=== PATIENT | male | born 1930 | race African-American/Black ===

== ENCOUNTER 2019-12-02 21:05 | Inpatient (IN) | payer MEDICARE, OTHER ==
[2019-12-02] MEDS ORDERED: Azithromycin 500 MG VIAL ONE (21:34)
[2019-12-02] MEDS ORDERED: Acetaminophen 325 MG TAB ONE ×2 (21:34→21:54)
--- NOTE | 2019-12-02 22:02 | RAD ---
Portable frontal chest radiograph: 12/02/2019 COMPARISON: 04/08/2014 HISTORY: Covid positive patient FINDINGS: Atherosclerotic calcification of the aortic arch noted. Increased linear interstitial densi ty in bilateral perihilar regions and medial lung bases. Mild hazy density in the mid right lung zone laterally. These opacities are new when compared to the prior exam. No lobar consolidation, pneu mothorax, or pleural fluid. IMPRESSION: Mild interstitial density in the perihilar regions and both lung bases consistent with th e provided history of Covid pneumonia.
[2019-12-02 22:07] LABS: #Lymphocytes 0.7 thou/uL (1.20-3.40); #Monocytes 0.3 thou/uL (0.11-0.59); #Neutrophils 5.1 thou/uL (1.40-6.50); %Basophils 0.6 % (0.0-1.0); %Eosinophils 0.1 % (0.0-10.0); %Lymphocytes 10.6 % (21.0-51.0); %Monocytes 5.5 % (0.0-10.0); %Neutrophils 83.3 % (42.0-75.0); Hemoglobin 13.3 g/dL (14.0-18.0); Mean Corpuscular HGB CONC 33.5 g/dL (32.0-36.0); Mean Corpuscular Hemoglobin 29.7 pg (27.0-31.0); Mean Corpuscular Volume 88.5 fL (78.0-98.0); Platelet Count 124 thou/uL (130-400); RBC Distribution Width 13.7 % (11.5-14.5); Red Blood Cell (RBC) Count 4.47 mill/uL (4.70-6.10); White Blood Cell (WBC) Count 6.1 thou/uL (4.8-10.8)
--- NOTE | 2019-12-02 22:17 | CT ---
Head CT without contrast 12/02/2019: COMPARISON: 05/08/2008 HISTORY: Lethargy TECHNIQUE: Axial CT imaging at 5 mm intervals from vertex through skull base without contrast FINDINGS: Imaged paranasal sinuses and mastoid air cells are well aerated. No displaced calvarial fra cture. Extensive periventricular, deep, and subcortical white matter hypodensity, evidence of small vessel disease. Diffuse cerebral volume loss with associated prominence of the CSF containing spaces. No intracranial hemorrhage, midline shift, or mass effect IMPRESSION: Chronic findings as above. No intracranial hemorrhage.
[2019-12-02 22:27] LABS: ALT (SGPT) 21 U/L (8-55); AST (SGOT) 85 U/L (5-34); Albumin 3.6 g/dL (3.4-4.8); Alkaline Phosphatase 74 U/L (40-110); Anion Gap 17 mmol/L (10-20); BUN (Urea Nitrogen) 13 mg/dL (8.4-25.7); Calc. Creatinine Clearance 0 mL/min (70-130); Calcium 9.2 mg/dL (7.8-10.44); Carbon Dioxide 24 mmol/L (23-31); Chloride 100 mmol/L (98-107); Estimated GFR-MDRD 68; Globulin 4.2 g/dL (2.4-3.5); Glucose 147 mg/dL (83-110); Lipase 28 U/L (8-78); Potassium 4.2 mmol/L (3.5-5.1); Protein, Total 7.8 g/dL (5.8-8.1); Sodium 137 mmol/L (136-145)
[2019-12-02 22:32] LABS: Acetaminophen Less than 6.0 mcg/mL (10.0-30.0); Alcohol Less than 10 mg/dL (Less than 10); Salicylate Less than 8.0 mg/dL (15.0-30.0)
[2019-12-02 22:49] LABS: CKMB 1.6 ng/mL (0-6.6)
[2019-12-02 23:11] LABS: Bacteria/HPF None Seen HPF (None Seen); Bilirubin Negative (Negative); Blood, Urine Negative (Negative); Clarity Clear (Clear); Glucose, Urine (Dipstick) Normal (Negative); Ketone, Urine Negative (Negative); Leukocyte Negative Leu/uL (Negative); Nitrite Negative (Negative); Protein, Urine (Dipstick) 50 mg/dL (Neg-Trace); RBC/HPF 0-3 HPF (0-3); Specific Gravity, Urine 1.022 (1.002-1.036); Squamous Epithelial None Seen HPF (0-3); WBC/HPF 0-3 HPF (0-3); pH, Urine 6.5 (5.0-9.0)
[2019-12-02] MEDS ORDERED: Vancomycin 1 GM/200 ML BAG ONE (23:17)
[2019-12-02] MEDS ORDERED: Cefepime 2 GM VIAL ONE (23:17)
[2019-12-02 23:21] LABS: Amphetamine Not Detected (NotDetected); Barbiturates Screen Not Detected (NotDetected); Benzodiazepine Screen Not Detected (NotDetected); Cocaine Metabolite Screen Not Detected (NotDetected); Medtox Control Line Valid? VALID (VALID); Medtox Reader # READER 1; Methadone Not Detected (NotDetected); Methamphetamine Not Detected (NotDetected); Opiate Screen Not Detected (NotDetected); Oxycodone Screen Not Detected (NotDetected); Phencyclidine (PCP) Not Detected (NotDetected); THC/Cannabinoid Screen Not Detected (NotDetected); Tricyclic Screen Not Detected (NotDetected)
[2019-12-03 00:24] LABS: Lactic Acid 2.8 mmol/L (0.5-2.2)
[2019-12-03] MEDS ORDERED: Ondansetron PF 4 MG/2 ML Vial IVP PRN (01:02)
[2019-12-03] MEDS ORDERED: Ondansetron ODT 4 MG TAB SL PRN (01:02)
[2019-12-03] MEDS ORDERED: Acetaminophen 325 MG TAB PO PRN (01:02)
[2019-12-03] MEDS ORDERED: Guaifenesin DM 100-10/5 ML UDCUP PO PRN (02:04)
[2019-12-03] MEDS ORDERED: Calcium Carbonate 500 MG ChewTAB PO PRN (02:04)
--- NOTE | 2019-12-03 02:15 | PDOC.HHP ---
Hospitalist HPI - History of Present Illness altered mental state, fever History of Present Illness: Case of an 89y/o male with pmhx of hypothyroidism, chron's disease and HLD who comes to hospital due to fever and altered mental state. apparently patient was recently dc from [place] [facility] after been hospitalize for COVID 19, was sent home on 13AUG, after 2 days of hospitalization. Today family members called EMS due to patient "being more weak and less active" than usual with associated fever 101 at home, for which they wanted medical evaluation. during my evaluation patient was lethargic, oriented only to person able to follow commands Hospitalist ROS - Review of Systems All other systems reviewed; all pertinent +/- noted in HPI/Subj Hospitalist History - Past Surgical History Other Surgical History: unable to asses due to mental status - Family History Other Family History: unable to asses due to mental status - Exam General Appearance: NAD, awake alert Eye: PERRL, anicteric sclera ENT: normocephalic atraumatic, no oropharyngeal lesions Neck: supple, symmetric, no JVD Heart: RRR, no murmur, no gallops Respiratory: CTAB, no wheezes, no rales Gastrointestinal: soft, non-tender, non-distended Extremities: no cyanosis, no clubbing, no edema Skin: normal turgor, no lesions, no rashes Neurological: cranial nerve grossly intact, normal sensation to touch Musculoskeletal: normal tone Psychiatric: normal affect, normal behavior, oriented to person Hospitalist Results - Labs Result Diagrams: 12/02/19 21:52 12/02/19 21:52 Lab results: WBC 6.1 thou/uL (4.8-10.8) 12/02/19 21:52 Hgb 13.3 g/dL (14.0-18.0) L 12/02/19 21:52 Hct 39.6 % (42.0-52.0) L 12/02/19 21:52 MCV 88.5 fL (78.0-98.0) 12/02/19 21:52 Plt Count 124 thou/uL (130-400) L 12/02/19 21:52 Neutrophils % 83.3 % (42.0-75.0) H 12/02/19 21:52 Sodium 137 mmol/L (136-145) 12/02/19 21:52 Potassium 4.2 mmol/L (3.5-5.1) 12/02/19 21:52 Chloride 100 mmol/L (98-107) 12/02/19 21:52 Carbon Dioxide 24 mmol/L (23-31) 12/02/19 21:52 BUN 13 mg/dL (8.4-25.7) 12/02/19 21:52 Creatinine 1.22 mg/dL (0.7-1.3) 12/02/19 21:52 Glucose 147 mg/dL (83-110) H 12/02/19 21:52 Lactic Acid 2.8 mmol/L (0.5-2.2) H 12/02/19 23:59 Calcium 9.2 mg/dL (7.8-10.44) 12/02/19 21:52 Total Bilirubin 1.0 mg/dL (0.2-1.2) 12/02/19 21:52 AST 85 U/L (5-34) H 12/02/19 21:52 ALT 21 U/L (8-55) 12/02/19 21:52 Alkaline Phosphatase 74 U/L (40-110) 12/02/19 21:52 CK-MB (CK-2) 1.6 ng/mL (0-6.6) 12/02/19 21:52 Troponin I 0.065 ng/mL (< 0.028) H 12/02/19 21:52 Serum Total Protein 7.8 g/dL (5.8-8.1) 12/02/19 21:52 Albumin 3.6 g/dL (3.4-4.8) 12/02/19 21:52 Lipase 28 U/L (8-78) 12/02/19 21:52 Urine Ketones Negative mg/dL (Negative) 12/02/19 22:45 Urine Blood Negative (Negative) 12/02/19 22:45 Urine Nitrite Negative (Negative) 12/02/19 22:45 Ur Leukocyte Esterase Negative Yoshi/uL (Negative) 12/02/19 22:45 Urine RBC 0-3 HPF (0-3) 12/02/19 22:45 Urine WBC 0-3 HPF (0-3) 12/02/19 22:45 Ur Squamous Epith Cells None Seen HPF (0-3) 12/02/19 22:45 Urine Bacteria None Seen HPF (None Seen) 12/02/19 22:45 - Radiology Interpretation CT scan - head Additional Comment: no acute pathology Hospitalist H&P A/P - Problem (1) Sepsis Code(s): A41.9 - SEPSIS, UNSPECIFIED ORGANISM Status: Acute (2) Pneumonia due to COVID-19 virus Code(s): U07.1 - COVID-19; J12.89 - OTHER VIRAL PNEUMONIA Status: Acute (3) Hypothyroidism Code(s): E03.9 - HYPOTHYROIDISM, UNSPECIFIED Status: Acute (4) HTN (hypertension) Code(s): I10 - ESSENTIAL (PRIMARY) HYPERTENSION Status: Acute (5) Hx of Crohn's disease Code(s): Z87.19 - PERSONAL HISTORY OF OTHER DISEASES OF THE DIGESTIVE SYSTEM Status: Acute - Plan Plan: 89y/o male with the stated pmhx who present with sepsis secondary to covid 19 sepsis / covid 19 - fever with altered mental status and cxr consistent with covid 19 - sepsis bundles started, blood cultures taken, ivfs and broad spectrum abx given - f/u LA - 02 supplementation - dvt prophylaxis - decadron 6mg ivd - cxr consistent covid 19 - f/u inflammation markers - recent hospitalization for covid 19 htn - holding htn due to sepsis - restart when more stable hypothyroidism / hld / chrons - continue home meds when able
[2019-12-03] MEDS: cefTRIAXone\\ROCEPHIN 1 GM in Sodium Chloride 0.9% 100 ML IVPB SCH (03:09)
[2019-12-03] MEDS: Sodium Chloride 0.9% 1,000 ML IV SCH ×2 (03:09→18:25)
[2019-12-03 04:58] LABS: ALT (SGPT) 21 U/L (8-55); AST (SGOT) 77 U/L (5-34); Alkaline Phosphatase 59 U/L (40-110); Anion Gap 13 mmol/L (10-20); BUN (Urea Nitrogen) 12 mg/dL (8.4-25.7); Bilirubin, Total 0.9 mg/dL (0.2-1.2); Calc. Creatinine Clearance 67 mL/min (70-130); Calcium 8.1 mg/dL (7.8-10.44); Carbon Dioxide 21 mmol/L (23-31); Chloride 101 mmol/L (98-107); Estimated GFR-MDRD 90; Globulin 3.4 g/dL (2.4-3.5); Glucose 119 mg/dL (83-110); Potassium 3.7 mmol/L (3.5-5.1); Protein, Total 6.4 g/dL (5.8-8.1); Sodium 131 mmol/L (136-145)
[2019-12-03 05:02] LABS: Troponin I 0.056 ng/mL (< 0.028)
[2019-12-03 06:34] LABS: Hemoglobin 11.5 g/dL (14.0-18.0); Mean Corpuscular Hemoglobin 28.4 pg (27.0-31.0); Mean Corpuscular Volume 88.8 fL (78.0-98.0); Platelet Count 116 thou/uL (130-400); RBC Distribution Width 13.6 % (11.5-14.5); Red Blood Cell (RBC) Count 4.06 mill/uL (4.70-6.10); White Blood Cell (WBC) Count 6.4 thou/uL (4.8-10.8)
[2019-12-03 06:45] LABS: Troponin I 0.075 ng/mL (< 0.028)
[2019-12-03 07:35] LABS: Band 11 % (5-11); Lymphocytes 23 % (21-51); MDiff Complete? YES; Monocytes 7 % (0-10); Neutrophil 59 % (42-75); Platelet Morphology Comment Appears Decreased; Polychromasia SLIGHT = 2-3 cells (100X) (0-2/hpf)
[2019-12-03] MEDS: Dexamethasone 4 mg/ml Vial SLOW IVP SCH (07:35)
[2019-12-03] MEDS: Enoxaparin Sodium 40 MG/0.4 ML SYRINGE SC SCH (07:36)
--- NOTE | 2019-12-03 17:20 | PDOC.HOSPP ---
- Subjective Subjective: Patient was seen examined at bedside. He still lethargic, arousable. His vital signs stable. He remains afebrile, he is satting at 98% on room air. No other acute events overnight. I have called and update his family, his Mr. Kianna Knight. - Objective Vital Signs & Weight: Vital Signs (12 hours) Temp Pulse Resp BP Pulse Ox 12/03/19 16:00 97.5 F L 75 18 154/67 H 98 12/03/19 11:15 98.6 F 79 20 142/69 H 100 12/03/19 07:57 100 F H 78 20 144/67 H 100 Weight Admit Weight 199 lb 3.2 oz Weight 199 lb 3.2 oz I&O: 12/02/19 12/03/19 12/04/19 06:59 06:59 06:59 Intake Total 275 Output Total 250 Balance 275 -250 Result Diagrams: 12/03/19 06:20 12/03/19 04:01 Hospitalist ROS - Medication Medications: Active Medications Generic Name Dose Route Start Last Admin Trade Name Roc PRN Reason Stop Dose Admin Dexamethasone 6 mg 12/03/19 09:00 12/03/19 07:35 Decadron SLOW IVP 6 mg DAILY DOMINGUEZ Administration Enoxaparin Sodium 40 mg 12/03/19 09:00 12/03/19 07:36 Lovenox SC 40 mg 0900 DOMINGUEZ Administration Ceftriaxone Sodium 1 gm/ 100 mls @ 200 mls/hr 12/03/19 03:00 12/03/19 03:09 Sodium Chloride IVPB 100 mls 0300 DOMINGUEZ Administration Sodium Chloride 1,000 mls @ 70 mls/hr 12/03/19 02:15 12/03/19 03:09 Normal Saline 0.9% IV 1,000 mls .[id number] DOMINGUEZ Administration Hosp A/P - Plan - Physical Exam General Appearance: NAD, awake alert Eye: PERRL, anicteric sclera ENT: normocephalic atraumatic, no oropharyngeal lesions Neck: supple, symmetric, no JVD Heart: RRR, no murmur, no gallops Respiratory: CTAB, no wheezes, no rales Gastrointestinal: soft, non-tender, non-distended Extremities: no cyanosis, no clubbing, no edema Skin: normal turgor, no lesions, no rashes Neurological: cranial nerve grossly intact, lethargic Musculoskeletal: normal tone Psychiatric: normal affect, normal behavior Assessment and plan: #Sepsis present on admission secondary to pneumonia #Pneumonia due to COVID-19 virus #Essential hypertension #History subacromial disease #Poor p.o. intake 12/03/2019 Patient still lethargic, with intermittent confusion. He remains afebrile since admission. Blood cultures are pending. Poor p.o. intake. We will continue with empiric IV antibiotics, Decadron, breathing treatment. We will add Potonix for GI prophylaxis as patient is on steroids. Continue Lovenox for DVT prophylaxis. Supportive care. I have updated his with regards to his status.
[2019-12-03] MEDS: Azithromycin 500 MG in Sodium Chloride 0.9% 250 ML 250 ML IVPB SCH (20:32)
[2019-12-04] MEDS: cefTRIAXone\\ROCEPHIN 1 GM in Sodium Chloride 0.9% 100 ML IVPB SCH (03:11)
[2019-12-04 05:22] LABS: #Monocytes 0.3 thou/uL (0.11-0.59); #Neutrophils 4.5 thou/uL (1.40-6.50); %Basophils 0.3 % (0.0-1.0); %Eosinophils 0.1 % (0.0-10.0); %Lymphocytes 17.3 % (21.0-51.0); %Monocytes 5.6 % (0.0-10.0); %Neutrophils 76.7 % (42.0-75.0); Hemoglobin 11.2 g/dL (14.0-18.0); Mean Corpuscular HGB CONC 32.2 g/dL (32.0-36.0); Mean Corpuscular Hemoglobin 28.8 pg (27.0-31.0); Mean Corpuscular Volume 89.3 fL (78.0-98.0); Mean Platelet Volume 9.2 fL (7.4-10.4); Platelet Count 126 thou/uL (130-400); RBC Distribution Width 13.7 % (11.5-14.5); White Blood Cell (WBC) Count 5.8 thou/uL (4.8-10.8)
[2019-12-04 06:08] LABS: ALT (SGPT) 17 U/L (8-55); AST (SGOT) 58 U/L (5-34); Albumin 2.7 g/dL (3.4-4.8); Alkaline Phosphatase 51 U/L (40-110); Anion Gap 10 mmol/L (10-20); BUN (Urea Nitrogen) 11 mg/dL (8.4-25.7); Bilirubin, Total 0.6 mg/dL (0.2-1.2); Calc. Creatinine Clearance 83 mL/min (70-130); Calcium 8.2 mg/dL (7.8-10.44); Carbon Dioxide 20 mmol/L (23-31); Chloride 110 mmol/L (98-107); Estimated GFR-MDRD Greater than 90; Globulin 3.3 g/dL (2.4-3.5); Glucose 110 mg/dL (83-110); Magnesium 1.9 mg/dL (1.6-2.6); Potassium 4.1 mmol/L (3.5-5.1); Sodium 136 mmol/L (136-145)
[2019-12-04] MEDS: Dexamethasone 4 mg/ml Vial SLOW IVP SCH (08:31)
[2019-12-04] MEDS: Sodium Chloride 0.9% 1,000 ML IV SCH ×2 (08:31→20:28)
[2019-12-04] MEDS: Enoxaparin Sodium 40 MG/0.4 ML SYRINGE SC SCH (08:32)
[2019-12-04] MEDS: Sodium Chloride 0.9% (PF) 10 ML VIAL FS PRN (08:33)
[2019-12-04] MEDS: Pantoprazole 40 MG VIAL IVP SCH (08:34)
--- NOTE | 2019-12-04 15:40 | PDOC.HOSPP ---
- Subjective Subjective: Patient was seen examined at bedside. Patient is much improved today mentally. He had no fever, satting well on room air. His p.o. intake still. I have called and updated his on the phone. Discussed with nursing staff. - Objective Vital Signs & Weight: Vital Signs (12 hours) Temp Pulse Resp BP Pulse Ox 12/04/19 15:24 99 F 71 14 158/72 H 97 12/04/19 14:53 95 12/04/19 11:40 97.7 F 64 20 137/71 95 12/04/19 08:50 98.1 F 76 20 178/80 H 95 Weight Admit Weight 199 lb 3.2 oz Weight 199 lb 3.2 oz I&O: 12/03/19 12/04/19 12/05/19 06:59 06:59 06:59 Intake Total 275 1390 Output Total 550 Balance 275 840 Result Diagrams: 12/04/19 04:25 12/04/19 04:25 Hospitalist ROS - Medication Medications: Active Medications Generic Name Dose Route Start Last Admin Trade Name Freq PRN Reason Stop Dose Admin Dexamethasone 6 mg 12/03/19 09:00 12/04/19 08:31 Decadron SLOW IVP 6 mg DAILY DOMINGUEZ Administration Enoxaparin Sodium 40 mg 12/03/19 09:00 12/04/19 08:32 Lovenox SC 40 mg 0900 DOMINGUEZ Administration Azithromycin 500 mg/ Sodium 250 mls @ 250 mls/hr 12/03/19 21:00 12/03/19 20: 32 Chloride IVPB 250 mls 2100 DOMINGUEZ Administration Sodium Chloride 1,000 mls @ 70 mls/hr 12/03/19 02:15 12/04/19 08:31 Normal Saline 0.9% IV 1,000 mls .[id number] DOMINGUEZ Administration Pantoprazole Sodium 40 mg 12/04/19 09:00 12/04/19 08:34 Protonix IVP 40 mg DAILY DOMINGUEZ Administration Sodium Chloride 10 ml 12/03/19 17:47 12/04/19 08:33 Normal Saline Pf FS 10 ml PRN PRN Administration RECONSTITUTION Hosp A/P - Plan - Physical Exam General Appearance: NAD, awake alert Eye: PERRL, anicteric sclera ENT: normocephalic atraumatic, no oropharyngeal lesions Neck: supple, symmetric, no JVD Heart: RRR, no murmur, no gallops Respiratory: CTAB, no wheezes, no rales Gastrointestinal: soft, non-tender, non-distended Extremities: no cyanosis, no clubbing, no edema Skin: normal turgor, no lesions, no rashes Neurological: cranial nerve grossly intact, lethargic Musculoskeletal: normal tone Psychiatric: normal affect, normal behavior Assessment and plan: #Sepsis present on admission secondary to pneumonia #Pneumonia due to COVID-19 virus #Essential hypertension #History Crohn's disease #Poor p.o. intake 12/04/2019 No further fever. Patient responded well with current therapy. Mental status much We will continue with empiric antibiotic. Blood cultures so far no growth. He still have poor p.o. intake. I have encouraged him to increase his p.o. intake as well as supplemental diet. I have updated family member regard to patient's status. Hopefully will be able to get him home in a day or 2. 12/03/2019 Patient still lethargic, with intermittent confusion. He remains afebrile since admission. Blood cultures are pending. Poor p.o. intake. We will continue with empiric IV antibiotics, Decadron, breathing treatment. We will add Potonix for GI prophylaxis as patient is on steroids. Continue Lovenox for DVT prophylaxis. Supportive care. I have updated his with regards to his status.
[2019-12-04] MEDS: Azithromycin 500 MG in Sodium Chloride 0.9% 250 ML 250 ML IVPB SCH (20:27)
[2019-12-05] MEDS: hydrALAZINE 20 MG/ML VIAL SLOW IVP PRN ×2 (00:19→04:06)
[2019-12-05] MEDS: Sodium Chloride 0.9% 1,000 ML IV SCH ×2 (04:05→10:29)
[2019-12-05] MEDS: cefTRIAXone\\ROCEPHIN 1 GM in Sodium Chloride 0.9% 100 ML IVPB SCH (08:11)
[2019-12-05] MEDS: Enoxaparin Sodium 40 MG/0.4 ML SYRINGE SC SCH (08:11)
[2019-12-05] MEDS: Pantoprazole 40 MG VIAL IVP SCH (08:11)
[2019-12-05] MEDS: Dexamethasone 4 mg/ml Vial SLOW IVP SCH (08:13)
[2019-12-05] MEDS ORDERED: Amlodipine 10 MG TAB PO SCH (10:15)
--- NOTE | 2019-12-05 16:19 | PDOC.HOSPP ---
- Subjective Subjective: Pt was seen examined at bedside. No new complaint. slightly tachypnic but remains on RA. not eating much per nursing staff. no fever. cultures no growth. - Objective Vital Signs & Weight: Vital Signs (12 hours) Temp Pulse Resp BP BP BP Pulse Ox 12/05/19 16:00 98.2 F 87 32 H 12/05/19 14:01 145/70 H 152/76 H 12/05/19 10:50 98.8 F 91 32 H 133/67 95 12/05/19 10:29 100 12/05/19 08:00 99.7 F H 100 32 H 175/85 H 96 12/05/19 05:47 101 H 175/83 H Pulse Ox Pulse Ox 12/05/19 16:00 12/05/19 14:01 98 98 12/05/19 10:50 12/05/19 10:29 12/05/19 08:00 12/05/19 05:47 Weight Admit Weight 199 lb 3.2 oz Weight 199 lb 3.2 oz I&O: 12/04/19 12/05/19 12/06/19 06:59 06:59 06:59 Intake Total 1390 Output Total 550 175 Balance 840 -175 Result Diagrams: 12/04/19 04:25 12/04/19 04:25 Hospitalist ROS - Medication Medications: Active Medications Generic Name Dose Route Start Last Admin Trade Name Freq PRN Reason Stop Dose Admin Dexamethasone 6 mg 12/03/19 09:00 12/05/19 08:13 Decadron SLOW IVP 6 mg DAILY DOMINGUEZ Administration Enoxaparin Sodium 40 mg 12/03/19 09:00 12/05/19 08:11 Lovenox SC 40 mg 0900 DOMINGUEZ Administration Hydralazine HCl 10 mg 12/04/19 23:36 12/05/19 04:06 Apresoline SLOW IVP 10 mg Q4H PRN Administration SBP > 180 Azithromycin 500 mg/ Sodium 250 mls @ 250 mls/hr 12/03/19 21:00 12/04/19 20: 27 Chloride IVPB 250 mls 2100 DOMINGUEZ Administration Ceftriaxone Sodium 1 gm/ 100 mls @ 200 mls/hr 12/05/19 10:00 12/05/19 08:11 Sodium Chloride IVPB 100 mls 1000 DOMINGUEZ Administration Sodium Chloride 1,000 mls @ 50 mls/hr 12/05/19 10:07 12/05/19 10:29 Normal Saline 0.9% IV Not Given .Q20H DOMINGUEZ Pantoprazole Sodium 40 mg 12/04/19 09:00 12/05/19 08:11 Protonix IVP 40 mg DAILY DOMINGUEZ Administration Sodium Chloride 10 ml 12/03/19 17:47 12/04/19 08:33 Normal Saline Pf FS 10 ml PRN PRN Administration RECONSTITUTION Hosp A/P - Plan - Physical Exam General Appearance: NAD, awake alert Eye: PERRL, anicteric sclera ENT: normocephalic atraumatic, no oropharyngeal lesions Neck: supple, symmetric, no JVD Heart: RRR, no murmur, no gallops Respiratory: CTAB, no wheezes, no rales Gastrointestinal: soft, non-tender, non-distended Extremities: no cyanosis, no clubbing, no edema Skin: normal turgor, no lesions, no rashes Neurological: cranial nerve grossly intact, lethargic Musculoskeletal: normal tone Psychiatric: normal affect, normal behavior Assessment and plan: #Sepsis present on admission secondary to pneumonia #Pneumonia due to COVID-19 virus #Essential hypertension #History Crohn's disease #Poor p.o. intake 12/05/2019 Pt is clinically improved. still poor PO intake. will cont supportive cares. PT eval. Anticipate D/C home tomorrow if cont to improve. BCx so no growth. 12/04/2019 No further fever. Patient responded well with current therapy. Mental status much We will continue with empiric antibiotic. Blood cultures so far no growth. He still have poor p.o. intake. I have encouraged him to increase his p.o. intake as well as supplemental diet. I have updated family member regard to patient's status. Hopefully will be able to get him home in a day or 2. 12/03/2019 Patient still lethargic, with intermittent confusion. He remains afebrile since admission. Blood cultures are pending. Poor p.o. intake. We will continue with empiric IV antibiotics, Decadron, breathing treatment. We will add Potonix for GI prophylaxis as patient is on steroids. Continue Lovenox for DVT prophylaxis. Supportive care. I have updated his with regards to his status.
[2019-12-05] MEDS ORDERED: Simvastatin 40 MG TAB PO SCH (21:00)
[2019-12-05] MEDS: Atorvastatin Calcium 10 MG TAB PO SCH (21:23)
[2019-12-05] MEDS: Azithromycin 500 MG in Sodium Chloride 0.9% 250 ML 250 ML IVPB SCH (21:23)
[2019-12-06 05:36] LABS: Anion Gap 15 mmol/L (10-20); BUN (Urea Nitrogen) 15 mg/dL (8.4-25.7); CRP (Inflammatory) 8.99 mg/dL (= or < 0.5); Calc. Creatinine Clearance 81 mL/min (70-130); Calcium 8.5 mg/dL (7.8-10.44); Carbon Dioxide 17 mmol/L (23-31); Chloride 110 mmol/L (98-107); Estimated GFR-MDRD Greater than 90; Glucose 105 mg/dL (83-110); Potassium 3.9 mmol/L (3.5-5.1); Sodium 138 mmol/L (136-145)
[2019-12-06] MEDS: Sodium Chloride 0.9% 1,000 ML IV SCH (05:57)
[2019-12-06 06:06] LABS: Band 6 % (5-11); Hemoglobin 13.6 g/dL (14.0-18.0); Lymphocytes 13 % (21-51); MDiff Complete? YES; Mean Corpuscular Hemoglobin 28.3 pg (27.0-31.0); Mean Corpuscular Volume 88.4 fL (78.0-98.0); Mean Platelet Volume 8.8 fL (7.4-10.4); Monocytes 3 % (0-10); Myelocyte 3 % (0-0); Neutrophil 75 % (42-75); Platelet Count 177 thou/uL (130-400); RBC Distribution Width 13.8 % (11.5-14.5); White Blood Cell (WBC) Count 6.5 thou/uL (4.8-10.8)
[2019-12-06] MEDS: Enoxaparin Sodium 40 MG/0.4 ML SYRINGE SC SCH (07:56)
[2019-12-06] MEDS: Dexamethasone 4 mg/ml Vial SLOW IVP SCH (07:57)
[2019-12-06] MEDS: Furosemide 40 MG TAB PO SCH (07:57)
[2019-12-06] MEDS: Levothyroxine Sodium 50 MCG TAB PO SCH (07:57)
[2019-12-06] MEDS: Amlodipine 10 MG TAB PO SCH (07:58)
[2019-12-06] MEDS: Cholecalciferol 1,000 UNITS (25 MCG) TAB PO SCH (07:58)
[2019-12-06] MEDS: Potassium Chloride 10 MEQ TAB PO SCH (07:58)
[2019-12-06] MEDS: Pantoprazole 40 MG VIAL IVP SCH (08:00)
[2019-12-06] MEDS ORDERED: Non-Formulary Item 1 EACH (Cholecalciferol (Vitamin D3) [Vitamin D3] 2,000 UNIT) PO SCH (09:00)
[2019-12-06] MEDS ORDERED: Potassium Chloride 20 MEQ TAB PO SCH (09:00)
[2019-12-06] MEDS: cefTRIAXone\\ROCEPHIN 1 GM in Sodium Chloride 0.9% 100 ML IVPB SCH (10:24)
--- NOTE | 2019-12-06 17:13 | PDOC.HOSPP ---
- Subjective Subjective: Pt is still not eating much, lethargic. no appetite. No new event overnight. - Objective Vital Signs & Weight: Vital Signs (12 hours) Temp Pulse Resp BP Pulse Ox 12/06/19 12:00 98.5 F 87 22 H 164/91 H 96 12/06/19 09:13 184/85 H 12/06/19 07:10 98.2 F 98 24 H 210/96 H 94 L Weight Admit Weight 199 lb 3.2 oz Weight 199 lb 3.2 oz I&O: 12/05/19 12/06/19 12/07/19 06:59 06:59 06:59 Output Total 175 Balance -175 Result Diagrams: 12/06/19 04:36 12/06/19 04:36 Hospitalist ROS - Medication Medications: Active Medications Generic Name Dose Route Start Last Admin Trade Name Freq PRN Reason Stop Dose Admin Amlodipine Besylate 10 mg 12/06/19 09:00 12/06/19 07:58 Norvasc PO 10 mg DAILY DOMINGUEZ Administration Atorvastatin Calcium 10 mg 12/05/19 21:00 12/05/19 21:23 Lipitor PO 10 mg HS DOMINGUEZ Administration Cholecalciferol 2,000 units 12/06/19 09:00 12/06/19 07:58 Vitamin D3 PO 2,000 units DAILY DOMINGUEZ Administration Dexamethasone 6 mg 12/03/19 09:00 12/06/19 07:57 Decadron SLOW IVP 6 mg DAILY DOMINGUEZ Administration Enoxaparin Sodium 40 mg 12/03/19 09:00 12/06/19 07:56 Lovenox SC 40 mg 0900 DOMINGUEZ Administration Furosemide 40 mg 12/06/19 09:00 12/06/19 07:57 Lasix PO 40 mg DAILY DOMINGUEZ Administration Hydralazine HCl 10 mg 12/04/19 23:36 12/05/19 04:06 Apresoline SLOW IVP 10 mg Q4H PRN Administration SBP > 180 Azithromycin 500 mg/ Sodium 250 mls @ 250 mls/hr 12/03/19 21:00 12/05/19 21: 23 Chloride IVPB 250 mls 2100 DOMINGUEZ Administration Ceftriaxone Sodium 1 gm/ 100 mls @ 200 mls/hr 12/05/19 10:00 12/06/19 10:24 Sodium Chloride IVPB 100 mls 1000 DOMINGUEZ Administration Sodium Chloride 1,000 mls @ 50 mls/hr 12/05/19 10:07 12/06/19 05:57 Normal Saline 0.9% IV 1,000 mls .Q20H DOMINGUEZ Administration Levothyroxine Sodium 50 mcg 12/06/19 09:00 12/06/19 07:57 Synthroid PO 50 mcg DAILY DOMINGUEZ Administration Pantoprazole Sodium 40 mg 12/04/19 09:00 12/06/19 08:00 Protonix IVP 40 mg DAILY DOMINGUEZ Administration Potassium Chloride 10 meq 12/06/19 09:00 12/06/19 07:58 Klor-Con 10 PO 10 meq DAILY DOMINGUEZ Administration Sodium Chloride 10 ml 12/03/19 17:47 12/04/19 08:33 Normal Saline Pf FS 10 ml PRN PRN Administration RECONSTITUTION Hosp A/P - Plan - Physical Exam General Appearance: NAD, awake alert Eye: PERRL, anicteric sclera ENT: normocephalic atraumatic, no oropharyngeal lesions Neck: supple, symmetric, no JVD Heart: RRR, no murmur, no gallops Respiratory: CTAB, no wheezes, no rales Gastrointestinal: soft, non-tender, non-distended Extremities: no cyanosis, no clubbing, no edema Skin: normal turgor, no lesions, no rashes Neurological: cranial nerve grossly intact, lethargic Musculoskeletal: normal tone Psychiatric: normal affect, normal behavior Assessment and plan: #Sepsis present on admission secondary to pneumonia #Pneumonia due to COVID-19 virus #Essential hypertension #History Crohn's disease #Poor p.o. intake #Physical debility 12/06/2019 Pt is stable on room air, but quite debilitated. Will consult CM for inpt Rehab vs. SNF. cont supportive care, empiric abx, steroid. Supplemental diet 12/05/2019 Pt is clinically improved. still poor PO intake. will cont supportive cares. PT eval. Anticipate D/C home tomorrow if cont to improve. BCx so no growth. 12/04/2019 No further fever. Patient responded well with current therapy. Mental status much We will continue with empiric antibiotic. Blood cultures so far no growth. He still have poor p.o. intake. I have encouraged him to increase his p.o. intake as well as supplemental diet. I have updated family member regard to patient's status. Hopefully will be able to get him home in a day or 2. 12/03/2019 Patient still lethargic, with intermittent confusion. He remains afebrile since admission. Blood cultures are pending. Poor p.o. intake. We will continue with empiric IV antibiotics, Decadron, breathing treatment. We will add Potonix for GI prophylaxis as patient is on steroids. Continue Lovenox for DVT prophylaxis. Supportive care. I have updated his with regards to his status.
[2019-12-06] MEDS: Azithromycin 500 MG in Sodium Chloride 0.9% 250 ML 250 ML IVPB SCH (20:11)
[2019-12-06] MEDS: Atorvastatin Calcium 10 MG TAB PO SCH (20:11)
[2019-12-07 00:17] LABS: Actual Bicarbonate (HCO3a) 19.6 mEq/L (22-28); Base Excess (BEa) -1.5 mEq/L (-2.0 to +3.0); Calcium, Ionized (arterial) 1.16 mmol/L (1.12-1.30); Carboxyhemoglobin (COHb) 0.9 gm% (0.0-3.0); Potassium - ABG Lab 3.65 mmol/L (3.70-5.30); pH, Arterial 7.53 (7.35-7.45)
[2019-12-07 00:18] LABS: CO2 Tension 24.3 mmHg (35.0-45.0); O2 Tension (PaO2), arterial 42.7 mmHg (> 60.0)
[2019-12-07 00:19] LABS: ALV-art Gradient 76.655 (0-20); Puncture Site LBR
--- NOTE | 2019-12-07 00:41 | PDOC.EVN ---
Event Note - Event Note Event Note: Patient tachypneic and tachycardic. ABG done, hypoxic on RA. Placed on O2 via nonrebreather Sats improved to 100% CTA ordered given symptoms and elevated d-dimer >20 done earlier today.
--- NOTE | 2019-12-07 07:42 | CT ---
CTA Angio Chest W Con History: Elevated d-dimer with hypoxia Comparison: None. Findings: CT angiogram chest performed after the intravenous administration of contrast. 3-D renderin g provided. Impression: Concordant with the preliminary report.
[2019-12-07] MEDS: cefTRIAXone\\ROCEPHIN 1 GM in Sodium Chloride 0.9% 100 ML IVPB SCH (09:46)
[2019-12-07] MEDS: Pantoprazole 40 MG VIAL IVP SCH (09:46)
[2019-12-07] MEDS: Enoxaparin Sodium 60 MG/0.6 ML SYRINGE SC SCH (09:48)
[2019-12-07] MEDS: Dexamethasone 4 mg/ml Vial SLOW IVP SCH (09:49)
[2019-12-07] MEDS: Furosemide 40 MG TAB PO SCH (09:53)
[2019-12-07] MEDS: Cholecalciferol 1,000 UNITS (25 MCG) TAB PO SCH (09:54)
[2019-12-07] MEDS: Levothyroxine Sodium 50 MCG TAB PO SCH (09:54)
[2019-12-07] MEDS: Amlodipine 10 MG TAB PO SCH (09:55)
[2019-12-07] MEDS: Potassium Chloride 10 MEQ TAB PO SCH (09:55)
[2019-12-07] MEDS: Sodium Chloride 0.9% 1,000 ML IV SCH (10:00)
[2019-12-07] MEDS ORDERED: Iopamidol-370 76% 500 ML 1 ML ONE (13:57)
--- NOTE | 2019-12-07 14:22 | PDOC.HOSPP ---
- Subjective Subjective: Patient was seen examined at bedside. Overnight event noted. Patient became hypoxic. For that reason CTA was done, came back negative for PE, groundglass appearance consistent with Covid PNA . Patient appears to be comfortable Ventimask. I have called discussed with his and also his daughters on the phone and update them with regards to his status. - Objective Vital Signs & Weight: Vital Signs (12 hours) Temp Pulse Resp BP Pulse Ox 12/07/19 12:15 99.1 F 83 24 H 157/72 H 96 12/07/19 09:55 89 12/07/19 08:00 98.1 F 89 30 H 180/81 H 95 12/07/19 04:05 97.9 F 84 22 H 142/77 H 100 Weight Admit Weight 199 lb 3.2 oz Weight 199 lb 3.2 oz I&O: 12/06/19 12/07/19 12/08/19 06:59 06:59 06:59 Intake Total 2594 540 Output Total 850 200 Balance 1744 340 Result Diagrams: 12/06/19 04:36 12/06/19 04:36 Hospitalist ROS - Medication Medications: Active Medications Generic Name Dose Route Start Last Admin Trade Name Freq PRN Reason Stop Dose Admin Amlodipine Besylate 10 mg 12/06/19 09:00 12/07/19 09:55 Norvasc PO 10 mg DAILY DOMINGUEZ Administration Atorvastatin Calcium 10 mg 12/05/19 21:00 12/06/19 20:11 Lipitor PO 10 mg HS DOMINGUEZ Administration Cholecalciferol 2,000 units 12/06/19 09:00 12/07/19 09:54 Vitamin D3 PO 2,000 units DAILY DOMINGUEZ Administration Dexamethasone 6 mg 12/03/19 09:00 12/07/19 09:49 Decadron SLOW IVP 6 mg DAILY DOMINGUEZ Administration Enoxaparin Sodium 60 mg 12/07/19 09:00 12/07/19 09:48 Lovenox SC 60 mg 0900 DOMINGUEZ Administration Furosemide 40 mg 12/06/19 09:00 12/07/19 09:53 Lasix PO 40 mg DAILY DOMINGUEZ Administration Hydralazine HCl 10 mg 12/04/19 23:36 12/05/19 04:06 Apresoline SLOW IVP 10 mg Q4H PRN Administration SBP > 180 Azithromycin 500 mg/ Sodium 250 mls @ 250 mls/hr 12/03/19 21:00 12/06/19 20: 11 Chloride IVPB 250 mls 2100 DOMINGUEZ Administration Ceftriaxone Sodium 1 gm/ 100 mls @ 200 mls/hr 12/05/19 10:00 12/07/19 09:46 Sodium Chloride IVPB 100 mls 1000 DOMINGUEZ Administration Sodium Chloride 1,000 mls @ 50 mls/hr 12/05/19 10:07 12/07/19 10:00 Normal Saline 0.9% IV 1,000 mls .Q20H DOMINGUEZ Administration Levothyroxine Sodium 50 mcg 12/06/19 09:00 12/07/19 09:54 Synthroid PO 50 mcg DAILY DOMINGUEZ Administration Pantoprazole Sodium 40 mg 12/04/19 09:00 12/07/19 09:46 Protonix IVP 40 mg DAILY DOMINGUEZ Administration Potassium Chloride 10 meq 12/06/19 09:00 12/07/19 09:55 Klor-Con 10 PO 10 meq DAILY DOMINGUEZ Administration Sodium Chloride 10 ml 12/03/19 17:47 12/04/19 08:33 Normal Saline Pf FS 10 ml PRN PRN Administration RECONSTITUTION Hosp A/P - Plan - Physical Exam General Appearance: NAD, awake alert Eye: PERRL, anicteric sclera ENT: normocephalic atraumatic, no oropharyngeal lesions Neck: supple, symmetric, no JVD Heart: RRR, no murmur, no gallops Respiratory: CTAB, no wheezes, no rales Gastrointestinal: soft, non-tender, non-distended Extremities: no cyanosis, no clubbing, no edema Skin: normal turgor, no lesions, no rashes Neurological: cranial nerve grossly intact, lethargic Musculoskeletal: normal tone Psychiatric: normal affect, normal behavior Assessment and plan: #Acute hypoxic respiratory failure #Sepsis present on admission secondary to pneumonia #Pneumonia due to COVID-19 virus #Essential hypertension #History Crohn's disease #Poor p.o. intake #Physical debility 12/07/2019 Patient was planning to discharge home this week, unfortunately, he became more hypoxic overnight. CTA was negative for PE. Patient currently is on Decadron daily, empiric antibiotics. He still has poor appetite and not eating much, he is on supplemental diet. Nutrition is following. Patient currently comfortable on Ventimask, will continue with supportive care. Wean O2 as tolerated. Will obtain 2D echo to assess LV function. [facility]. lab. Updated family members, and daughter. Cont PT 12/06/2019 Pt is stable on room air, but quite debilitated. Will consult CM for inpt Rehab vs. SNF. cont supportive care, empiric abx, steroid. Supplemental diet 12/05/2019 Pt is clinically improved. still poor PO intake. will cont supportive cares. PT eval. Anticipate D/C home tomorrow if cont to improve. BCx so no growth. 12/04/2019 No further fever. Patient responded well with current therapy. Mental status much We will continue with empiric antibiotic. Blood cultures so far no growth. He still have poor p.o. intake. I have encouraged him to increase his p.o. intake as well as supplemental diet. I have updated family member regard to patient's status. Hopefully will be able to get him home in a day or 2. 12/03/2019 Patient still lethargic, with intermittent confusion. He remains afebrile since admission. Blood cultures are pending. Poor p.o. intake. We will continue with empiric IV antibiotics, Decadron, breathing treatment. We will add Potonix for GI prophylaxis as patient is on steroids. Continue Lovenox for DVT prophylaxis. Supportive care. I have updated his with regards to his status.
[2019-12-07] MEDS ORDERED: Polyethylene Glycol 3350 17 GM Packet PO PRN (15:15)
[2019-12-07] MEDS: Azithromycin 500 MG in Sodium Chloride 0.9% 250 ML 250 ML IVPB SCH (20:12)
[2019-12-07] MEDS: Senokot S 8.6-50 MG TAB PO SCH (20:12)
[2019-12-07] MEDS: Atorvastatin Calcium 10 MG TAB PO SCH (20:12)
[2019-12-08 06:07] LABS: Anion Gap 12 mmol/L (10-20); BUN (Urea Nitrogen) 17 mg/dL (8.4-25.7); Calc. Creatinine Clearance 81 mL/min (70-130); Calcium 8.3 mg/dL (7.8-10.44); Carbon Dioxide 21 mmol/L (23-31); Chloride 110 mmol/L (98-107); Estimated GFR-MDRD Greater than 90; Glucose 118 mg/dL (83-110); Magnesium 2.1 mg/dL (1.6-2.6); Potassium 4.1 mmol/L (3.5-5.1); Sodium 139 mmol/L (136-145)
[2019-12-08 06:09] LABS: Band 3 % (5-11); Hemoglobin 11.5 g/dL (14.0-18.0); Lymphocytes 5 % (21-51); MDiff Complete? YES; Mean Corpuscular HGB CONC 32.1 g/dL (32.0-36.0); Mean Corpuscular Hemoglobin 28.4 pg (27.0-31.0); Mean Corpuscular Volume 88.4 fL (78.0-98.0); Mean Platelet Volume 8.8 fL (7.4-10.4); Monocytes 6 % (0-10); Neutrophil 86 % (42-75); Platelet Count 182 thou/uL (130-400); Platelet Morphology Comment Appears Adequate; RBC Morphology Normal; Red Blood Cell (RBC) Count 4.05 mill/uL (4.70-6.10); White Blood Cell (WBC) Count 7.2 thou/uL (4.8-10.8)
[2019-12-08] MEDS: Enoxaparin Sodium 60 MG/0.6 ML SYRINGE SC SCH (08:31)
[2019-12-08] MEDS: Cholecalciferol 1,000 UNITS (25 MCG) TAB PO SCH (08:32)
[2019-12-08] MEDS: Senokot S 8.6-50 MG TAB PO SCH ×2 (08:32→20:43)
[2019-12-08] MEDS: Dexamethasone 4 mg/ml Vial SLOW IVP SCH (08:32)
[2019-12-08] MEDS: Levothyroxine Sodium 50 MCG TAB PO SCH (08:32)
[2019-12-08] MEDS: Pantoprazole 40 MG VIAL IVP SCH (08:32)
[2019-12-08] MEDS: Amlodipine 10 MG TAB PO SCH (08:32)
[2019-12-08] MEDS: Furosemide 40 MG TAB PO SCH (08:33)
[2019-12-08] MEDS: Sodium Chloride 0.9% 1,000 ML IV SCH (08:33)
[2019-12-08] MEDS: Potassium Chloride 10 MEQ TAB PO SCH (08:33)
[2019-12-08] MEDS: cefTRIAXone\\ROCEPHIN 1 GM in Sodium Chloride 0.9% 100 ML IVPB SCH (10:00)
--- NOTE | 2019-12-08 13:16 | PDOC.HOSPP ---
- Subjective Encounter Date: 12/08/19 Encounter Time: 12:40 Subjective: Patient is quite somnolent. Responds with few words. On high flow Ventimask at 15 L and is satting 98% he is also tachypneic. His blood pressure is trending up. Minimal p.o. intake. Discussed with RN. - Objective Vital Signs & Weight: Vital Signs (12 hours) Temp Pulse Resp BP Pulse Ox 12/08/19 08:32 78 12/08/19 08:05 98.6 F 72 24 H 148/72 H 98 12/08/19 04:00 99.1 F 78 24 H 132/76 98 Weight Admit Weight 199 lb 3.2 oz Weight 199 lb 3.2 oz I&O: 12/07/19 12/08/19 12/09/19 06:59 06:59 06:59 Intake Total 2594 1242 480 Output Total 850 275 Balance 1744 967 480 Result Diagrams: 12/08/19 04:59 12/08/19 04:59 Hospitalist ROS - Medication Medications: Active Medications Generic Name Dose Route Start Last Admin Trade Name Freq PRN Reason Stop Dose Admin Amlodipine Besylate 10 mg 12/06/19 09:00 12/08/19 08:32 Norvasc PO 10 mg DAILY DOMINGUEZ Administration Atorvastatin Calcium 10 mg 12/05/19 21:00 12/07/19 20:12 Lipitor PO 10 mg HS DOMINGUEZ Administration Cholecalciferol 2,000 units 12/06/19 09:00 12/08/19 08:32 Vitamin D3 PO 2,000 units DAILY DOMINGUEZ Administration Dexamethasone 6 mg 12/03/19 09:00 12/08/19 08:32 Decadron SLOW IVP 6 mg DAILY DOMINGUEZ Administration Enoxaparin Sodium 60 mg 12/07/19 09:00 12/08/19 08:31 Lovenox SC 60 mg 0900 DOMINGUEZ Administration Furosemide 40 mg 12/06/19 09:00 12/08/19 08:33 Lasix PO 40 mg DAILY DOMINGUEZ Administration Hydralazine HCl 10 mg 12/04/19 23:36 12/05/19 04:06 Apresoline SLOW IVP 10 mg Q4H PRN Administration SBP > 180 Azithromycin 500 mg/ Sodium 250 mls @ 250 mls/hr 12/03/19 21:00 12/07/19 20: 12 Chloride IVPB 250 mls 2100 DOMINGUEZ Administration Ceftriaxone Sodium 1 gm/ 100 mls @ 200 mls/hr 12/05/19 10:00 12/08/19 10:00 Sodium Chloride IVPB 100 mls 1000 DOMINGUEZ Administration Sodium Chloride 1,000 mls @ 50 mls/hr 12/05/19 10:07 12/08/19 08:33 Normal Saline 0.9% IV 1,000 mls .Q20H DOMINGUEZ Administration Levothyroxine Sodium 50 mcg 12/06/19 09:00 12/08/19 08:32 Synthroid PO 50 mcg DAILY DOMINGUEZ Administration Pantoprazole Sodium 40 mg 12/04/19 09:00 12/08/19 08:32 Protonix IVP 40 mg DAILY DOMINGUEZ Administration Polyethylene Glycol 17 gm 12/07/19 15:15 12/07/19 18:02 Miralax PO 17 gm DAILYPRN PRN Administration Constipation Potassium Chloride 10 meq 12/06/19 09:00 12/08/19 08:33 Klor-Con 10 PO 10 meq DAILY DOMINGUEZ Administration Senna/Docusate Sodium 1 tab 12/07/19 21:00 12/08/19 08:32 Senokot S PO 1 tab BID DOMINGUEZ Administration Sodium Chloride 10 ml 12/03/19 17:47 12/04/19 08:33 Normal Saline Pf FS 10 ml PRN PRN Administration RECONSTITUTION - Exam General Appearance: ill appearing Eye: PERRL ENT: normocephalic atraumatic Neck: supple Heart: RRR Respiratory: normal chest expansion Neurological: no focal deficits Musculoskeletal: generalized weakness Psychiatric: somnolent, lethargic Hosp A/P - Plan #Acute hypoxic respiratory failure #Sepsis present on admission secondary to pneumonia #Pneumonia due to COVID-19 virus #Essential hypertension #History Crohn's disease #Poor p.o. intake #Physical debility -CTA was negative for PE. -Decadron daily, empiric antibiotics Zithromax. Dysphagia with poor appetite -he is on supplemental diet. -Nutrition is following. P - will continue with supportive care. Wean O2 as tolerated. -Switch Lovenox to twice a day -Follow-up on echo -CT angiogram negative for pulmonary embolism however bilateral groundglass and interstitial opacities consistent with viral infection Possible benign granuloma in the left lower lobe 1.8 x 1.5 cm with central calcification Coronary artery atherosclerotic disease. He may need to go to a higher level care, including BiPAP placement, if he is clinically worsening, as he has tachypnea and low-grade temp and requiring high flow oxygen. Full code
[2019-12-08] MEDS: Enoxaparin Sodium 40 MG/0.4 ML SYRINGE SC SCH (20:42)
[2019-12-08] MEDS: Azithromycin 500 MG in Sodium Chloride 0.9% 250 ML 250 ML IVPB SCH (20:43)
[2019-12-08] MEDS: Atorvastatin Calcium 10 MG TAB PO SCH (20:43)
[2019-12-09] MEDS: Sodium Chloride 0.9% 1,000 ML IV SCH (04:38)
[2019-12-09] MEDS: Enoxaparin Sodium 40 MG/0.4 ML SYRINGE SC SCH ×2 (09:23→21:08)
[2019-12-09] MEDS: Furosemide 40 MG TAB PO SCH (09:24)
[2019-12-09] MEDS: Potassium Chloride 10 MEQ TAB PO SCH (09:24)
[2019-12-09] MEDS: Cholecalciferol 1,000 UNITS (25 MCG) TAB PO SCH (09:24)
[2019-12-09] MEDS: Amlodipine 10 MG TAB PO SCH (09:24)
[2019-12-09] MEDS: Senokot S 8.6-50 MG TAB PO SCH ×2 (09:24→21:09)
[2019-12-09] MEDS: Dexamethasone 4 mg/ml Vial SLOW IVP SCH (09:24)
[2019-12-09] MEDS: cefTRIAXone\\ROCEPHIN 1 GM in Sodium Chloride 0.9% 100 ML IVPB SCH (09:24)
[2019-12-09] MEDS: Levothyroxine Sodium 50 MCG TAB PO SCH (09:24)
[2019-12-09] MEDS: Pantoprazole 40 MG VIAL IVP SCH (09:25)
--- NOTE | 2019-12-09 12:05 | PDOC.HOSPP ---
- Subjective Encounter Date: 12/09/19 Encounter Time: 10:40 Subjective: Is quite somnolent. And not responding much for verbal stimulation. He is also hard of hearing. He is transitioned from Ventimask to 5 L oxygen by nasal cannula He is satting around 95%. His blood pressure is quite elevated. He has a very poor p.o. intake with the mechanical soft diet currently - Objective Vital Signs & Weight: Vital Signs (12 hours) Temp Pulse Resp BP Pulse Ox 12/09/19 09:30 95 12/09/19 09:20 97 12/09/19 07:41 97.4 F L 71 24 H 161/71 H 97 12/09/19 04:15 97.6 F 69 22 H 120/57 L 100 Weight Admit Weight 199 lb 3.2 oz Weight 199 lb 3.2 oz I&O: 12/08/19 12/09/19 12/10/19 06:59 06:59 06:59 Intake Total 1242 720 Output Total 275 500 Balance 967 220 Result Diagrams: 12/08/19 04:59 12/08/19 04:59 Hospitalist ROS - Medication Medications: Active Medications Generic Name Dose Route Start Last Admin Trade Name Freq PRN Reason Stop Dose Admin Amlodipine Besylate 10 mg 12/06/19 09:00 12/09/19 09:24 Norvasc PO 10 mg DAILY DOMINGUEZ Administration Atorvastatin Calcium 10 mg 12/05/19 21:00 12/08/19 20:43 Lipitor PO 10 mg HS DOMINGUEZ Administration Cholecalciferol 2,000 units 12/06/19 09:00 12/09/19 09:24 Vitamin D3 PO 2,000 units DAILY DOMINGUEZ Administration Dexamethasone 6 mg 12/03/19 09:00 12/09/19 09:24 Decadron SLOW IVP 6 mg DAILY DOMINGUEZ Administration Enoxaparin Sodium 40 mg 12/08/19 21:00 12/09/19 09:23 Lovenox SC 40 mg BID DOMINGUEZ Administration Furosemide 40 mg 12/06/19 09:00 12/09/19 09:24 Lasix PO 40 mg DAILY DOMINGUEZ Administration Hydralazine HCl 10 mg 12/04/19 23:36 12/05/19 04:06 Apresoline SLOW IVP 10 mg Q4H PRN Administration SBP > 180 Azithromycin 500 mg/ Sodium 250 mls @ 250 mls/hr 12/03/19 21:00 12/08/19 20: 43 Chloride IVPB 250 mls 2100 DOMINGUEZ Administration Ceftriaxone Sodium 1 gm/ 100 mls @ 200 mls/hr 12/05/19 10:00 12/09/19 09:24 Sodium Chloride IVPB 100 mls 1000 DOMINGUEZ Administration Sodium Chloride 1,000 mls @ 50 mls/hr 12/05/19 10:07 12/09/19 04:38 Normal Saline 0.9% IV 1,000 mls .Q20H DOMINGUEZ Administration Levothyroxine Sodium 50 mcg 12/06/19 09:00 12/09/19 09:24 Synthroid PO 50 mcg DAILY DOMINGUEZ Administration Pantoprazole Sodium 40 mg 12/04/19 09:00 12/09/19 09:25 Protonix IVP 40 mg DAILY DOMINGUEZ Administration Polyethylene Glycol 17 gm 12/07/19 15:15 12/07/19 18:02 Miralax PO 17 gm DAILYPRN PRN Administration Constipation Potassium Chloride 10 meq 12/06/19 09:00 12/09/19 09:24 Klor-Con 10 PO 10 meq DAILY DOMINGUEZ Administration Senna/Docusate Sodium 1 tab 12/07/19 21:00 12/09/19 09:24 Senokot S PO 1 tab BID DOMINGUEZ Administration Sodium Chloride 10 ml 12/03/19 17:47 12/04/19 08:33 Normal Saline Pf FS 10 ml PRN PRN Administration RECONSTITUTION - Exam General Appearance: ill appearing Eye: PERRL, anicteric sclera ENT: normocephalic atraumatic Neck: supple Heart: RRR Respiratory: normal chest expansion Neurological: no focal deficits Psychiatric: somnolent, lethargic Hosp A/P - Plan #Acute hypoxic respiratory failure #Sepsis present on admission secondary to pneumonia #Pneumonia due to COVID-19 virus #Essential hypertension #History Crohn's disease #Poor p.o. intake #Physical debility -CTA was negative for PE. -Decadron daily, empiric antibiotics Zithromax. Dysphagia with poor appetite -he is on supplemental diet. -Nutrition is following. P - will continue with supportive care. Wean O2 as tolerated. -Switch Lovenox to twice a day -Follow-up on echo -CT angiogram negative for pulmonary embolism however bilateral groundglass and interstitial opacities consistent with viral infection Possible benign granuloma in the left lower lobe 1.8 x 1.5 cm with central calcification Coronary artery atherosclerotic disease. He may need to go to a higher level care, including BiPAP placement, if he is clinically worsening, as he has tachypnea and low-grade temp and requiring high flow oxygen. Full code Accelerated hypertension -Blood pressure is on the high end he does have a hydralazine as needed -we will schedule to the [facility]. Poor p.o. intake On mechanical soft diet Echo is still pending He probably needs [facility] facility placement. We will check with director case on Tuesday.
[2019-12-09] MEDS ORDERED: Amlodipine 10 MG TAB PO SCH (12:15)
[2019-12-09] MEDS: Azithromycin 500 MG in Sodium Chloride 0.9% 250 ML 250 ML IVPB SCH (21:08)
[2019-12-09] MEDS: Atorvastatin Calcium 10 MG TAB PO SCH (21:09)
[2019-12-10] MEDS: Sodium Chloride 0.9% 1,000 ML IV SCH (04:18)
[2019-12-10] MEDS: Enoxaparin Sodium 40 MG/0.4 ML SYRINGE SC SCH ×2 (08:26→20:30)
[2019-12-10] MEDS: Amlodipine 10 MG TAB PO SCH (08:26)
[2019-12-10] MEDS: Dexamethasone 4 mg/ml Vial SLOW IVP SCH (08:26)
[2019-12-10] MEDS: Cholecalciferol 1,000 UNITS (25 MCG) TAB PO SCH (08:26)
[2019-12-10] MEDS: Senokot S 8.6-50 MG TAB PO SCH ×2 (08:27→20:31)
[2019-12-10] MEDS: Levothyroxine Sodium 50 MCG TAB PO SCH (08:27)
[2019-12-10] MEDS: cefTRIAXone\\ROCEPHIN 1 GM in Sodium Chloride 0.9% 100 ML IVPB SCH (08:27)
[2019-12-10] MEDS: Potassium Chloride 10 MEQ TAB PO SCH (08:27)
[2019-12-10] MEDS: Pantoprazole 40 MG VIAL IVP SCH (08:27)
[2019-12-10] MEDS: Furosemide 40 MG TAB PO SCH (08:27)
[2019-12-10 10:45] LABS: Actual Bicarbonate (HCO3a) 20.9 mEq/L (22-28); Base Excess (BEa) -1.1 mEq/L (-2.0 to +3.0); CO2 Tension 27.8 mmHg (35.0-45.0); Carboxyhemoglobin (COHb) 0.4 gm% (0.0-3.0); Hemoglobin (Hb) 13.2 g/dL (14.0-18.0); Potassium - ABG Lab 3.61 mmol/L (3.70-5.30); pH, Arterial 7.49 (7.35-7.45)
[2019-12-10 10:56] LABS: O2 Tension (PaO2), arterial 48.8 mmHg (> 60.0)
[2019-12-10 10:57] LABS: Puncture Site RRA
--- NOTE | 2019-12-10 11:15 | PDOC.HOSPP ---
- Subjective Encounter Date: 12/10/19 Encounter Time: 10:15 Subjective: Patient seen today. He is resting in the bed. He is more oriented and alert and able to talk to me. However his breathing rate is still higher. Blood gases are ordered. Blood gas shows pH of 7.49 and PCO2 of 1027.8 with a PO2 of 84.1. He has acute respiratory alkalosis. will try high flow oxygen. He just weaned off from high flow oxygen yesterday. He also has overall p.o. fluid intake. He is full code. Due to his deconditioning secondary to COVID will consult palliative as well. - Objective Vital Signs & Weight: Vital Signs (12 hours) Temp Pulse Resp BP Pulse Ox 12/10/19 09:09 98.3 F 80 32 H 151/71 H 96 12/10/19 08:26 64 12/10/19 04:00 98.2 F 73 24 H 120/59 L 92 L 12/10/19 00:00 98.5 F 68 22 H 132/68 92 L Weight Admit Weight 199 lb 3.2 oz Weight 199 lb 3.2 oz I&O: 12/09/19 12/10/19 12/11/19 06:59 06:59 06:59 Intake Total 720 1941.5 240 Output Total 500 300 300 Balance 220 1641.5 -60 Result Diagrams: 12/08/19 04:59 12/08/19 04:59 Hospitalist ROS - Medication Medications: Active Medications Generic Name Dose Route Start Last Admin Trade Name Eduinq PRN Reason Stop Dose Admin Amlodipine Besylate 10 mg 12/10/19 09:00 12/10/19 08:26 Norvasc PO 10 mg DAILY DOMINGUEZ Administration Atorvastatin Calcium 10 mg 12/05/19 21:00 12/09/19 21:09 Lipitor PO 10 mg HS DOMINGUEZ Administration Cholecalciferol 2,000 units 12/06/19 09:00 12/10/19 08:26 Vitamin D3 PO 2,000 units DAILY DOMINGUEZ Administration Dexamethasone 6 mg 12/03/19 09:00 12/10/19 08:26 Decadron SLOW IVP 6 mg DAILY DOMINGUEZ Administration Enoxaparin Sodium 40 mg 12/08/19 21:00 12/10/19 08:26 Lovenox SC 40 mg BID DOMINGUEZ Administration Furosemide 40 mg 12/06/19 09:00 12/10/19 08:27 Lasix PO 40 mg DAILY DOMINGUEZ Administration Guaifenesin/Dextromethorphan 15 ml 12/03/19 02:04 12/10/19 04:19 Robitussin Dm PO 15 ml Q4H PRN Administration Cough Hydralazine HCl 10 mg 12/04/19 23:36 12/05/19 04:06 Apresoline SLOW IVP 10 mg Q4H PRN Administration SBP > 180 Azithromycin 500 mg/ Sodium 250 mls @ 250 mls/hr 12/03/19 21:00 12/09/19 21: 08 Chloride IVPB 250 mls 2100 DOMINGUEZ Administration Ceftriaxone Sodium 1 gm/ 100 mls @ 200 mls/hr 12/05/19 10:00 12/10/19 08:27 Sodium Chloride IVPB 100 mls 1000 DOMINGUEZ Administration Sodium Chloride 1,000 mls @ 50 mls/hr 12/05/19 10:07 12/10/19 04:18 Normal Saline 0.9% IV 1,000 mls .Q20H DOMINGUEZ Administration Levothyroxine Sodium 50 mcg 12/06/19 09:00 12/10/19 08:27 Synthroid PO 50 mcg DAILY DOMINGUEZ Administration Pantoprazole Sodium 40 mg 12/04/19 09:00 12/10/19 08:27 Protonix IVP 40 mg DAILY DOMINGUEZ Administration Polyethylene Glycol 17 gm 12/07/19 15:15 12/07/19 18:02 Miralax PO 17 gm DAILYPRN PRN Administration Constipation Potassium Chloride 10 meq 12/06/19 09:00 12/10/19 08:27 Klor-Con 10 PO 10 meq DAILY DOMINGUEZ Administration Senna/Docusate Sodium 1 tab 12/07/19 21:00 12/10/19 08:27 Senokot S PO 1 tab BID DOMINGUEZ Administration Sodium Chloride 10 ml 12/03/19 17:47 12/04/19 08:33 Normal Saline Pf FS 10 ml PRN PRN Administration RECONSTITUTION - Exam General Appearance: NAD, awake alert, ill appearing Eye: PERRL ENT: normocephalic atraumatic Neck: supple Heart: RRR Respiratory: CTAB, normal chest expansion, tachypneic Gastrointestinal: soft, normal bowel sounds Neurological: no focal deficits Musculoskeletal: generalized weakness Psychiatric: A&O x 3 Hosp A/P - Plan #Acute hypoxic respiratory failure #Sepsis present on admission secondary to pneumonia #Pneumonia due to COVID-19 virus #Essential hypertension #History Crohn's disease #Poor p.o. intake #Physical debility -CTA was negative for PE. -Decadron daily, empiric antibiotics Zithromax. Dysphagia with poor appetite -he is on supplemental diet. -Nutrition is following. P - will continue with supportive care. Wean O2 as tolerated. -Switch Lovenox to twice a day -Follow-up on echo -CT angiogram negative for pulmonary embolism however bilateral groundglass and interstitial opacities consistent with viral infection Possible benign granuloma in the left lower lobe 1.8 x 1.5 cm with central calcification Coronary artery atherosclerotic disease. He may need to go to a higher level care, including BiPAP placement, if he is clinically worsening, as he has tachypnea and low-grade temp and requiring high flow oxygen. Full code Accelerated hypertension -Blood pressure is on the high end he does have a hydralazine as needed -we will schedule to the [facility]. Poor p.o. intake On mechanical soft diet Echo is still pending He probably needs [facility] facility placement. We will check with disease case manager on Tuesday. Blood gas shows pH of 7.49 and PCO2 of 1027.8 with a PO2 of 84.1. He has acute respiratory alkalosis. will try high flow oxygen. He just weaned off from high flow oxygen yesterday. He also has overall p.o. fluid intake. He is full code. Due to his deconditioning secondary to COVID will consult palliative as well.
[2019-12-10] MEDS ORDERED: Dronabinol 2.5 MG CAP PO SCH (16:30)
[2019-12-10] MEDS: Atorvastatin Calcium 10 MG TAB PO SCH (20:31)
[2019-12-10] MEDS: Azithromycin 500 MG in Sodium Chloride 0.9% 250 ML 250 ML IVPB SCH (20:31)
[2019-12-11] MEDS: Sodium Chloride 0.9% 1,000 ML IV SCH ×2 (00:16→22:02)
[2019-12-11] MEDS: Megestrol Acetate 800 MG/20 ML UDCUP PO SCH (08:49)
[2019-12-11] MEDS: Enoxaparin Sodium 40 MG/0.4 ML SYRINGE SC SCH ×2 (08:49→22:03)
[2019-12-11] MEDS: Potassium Chloride 10 MEQ TAB PO SCH (08:50)
[2019-12-11] MEDS: Levothyroxine Sodium 50 MCG TAB PO SCH (08:50)
[2019-12-11] MEDS: Furosemide 40 MG TAB PO SCH (08:50)
[2019-12-11] MEDS: cefTRIAXone\\ROCEPHIN 1 GM in Sodium Chloride 0.9% 100 ML IVPB SCH (08:50)
[2019-12-11] MEDS: Amlodipine 10 MG TAB PO SCH (08:50)
[2019-12-11] MEDS: Cholecalciferol 1,000 UNITS (25 MCG) TAB PO SCH (08:50)
[2019-12-11] MEDS: Senokot S 8.6-50 MG TAB PO SCH (08:50)
[2019-12-11] MEDS: Dexamethasone 4 mg/ml Vial SLOW IVP SCH (08:51)
[2019-12-11] MEDS: Pantoprazole 40 MG VIAL IVP SCH (08:51)
--- NOTE | 2019-12-11 11:34 | CON ---
DATE OF CONSULTATION: 12/11/2019 This is 75 minutes time, of that time, greater than 50% spent with the patient and/or the patient's unit in the hospital. REASON FOR CONSULTATION: COVID-19 pneumonia with acute hypoxic respiratory failure. HISTORY OF PRESENT ILLNESS: The patient is an 89-year-old male who is currently on BiPAP and cannot provide me with history. Therefore, what I have is obtained from reading the notes on the chart. It looks like he was originally admitted on 12/02 to the hospital service with fever, altered mental status. He had been discharged from [facility] around after being there with COVID-19, I am not sure what day he actually first came down with this. He has had progressive decline in his respiratory status despite aggressive care. PAST MEDICAL HISTORY: 1. COVID infection. 2. Crohn disease. 3. Hypothyroidism. PAST SURGICAL HISTORY: Not known. FAMILY MEDICAL HISTORY: Unremarkable. SOCIAL HISTORY: Currently not known. MEDICATIONS: Prior to admission: 1. Simvastatin. 2. Lasix. 3. Cholecalciferol. 4. Potassium chloride. 5. Synthroid. REVIEW OF SYSTEMS: Cannot be obtained as he is currently on BiPAP. PHYSICAL EXAMINATION: VITAL SIGNS: Temperature 99.8, pulse 99, respirations 42, O2 saturation 93% on BiPAP, 60% FiO2, and blood pressure 173/84. GENERAL: He is an elderly male. HEENT: Poor dentition. NECK: No JVD. LUNGS: Inspiratory crackles. CARDIOVASCULAR: S1, S2 regular. ABDOMEN: Soft and nontender. EXTREMITIES: No edema. LABORATORY DATA: White blood cell count 7.2, hematocrit 35.8, and platelet count 182 - that was from 12/07. There has been no chemistry since 12/07. There has been no C-reactive protein done since 12/05. I see no recent chest x-ray since 12/01. At that time, his lungs did not really look that bad. ASSESSMENT: Acute respiratory failure - very late after COVID infection. RECOMMENDATIONS: The patient needs to have his labs rechecked, needs a chest x-ray. I will go and switch him over to high-dose steroids. He may need further workup such as an echocardiogram as we may be dealing with other entities besides COVID-19 pneumonia at this point. Job ID: [id number]
--- NOTE | 2019-12-11 11:36 | PDOC.HOSPP ---
- Subjective Encounter Date: 12/11/19 Encounter Time: 09:20 Subjective: Not doing well respiratory [place] despite being on high flow oxygen. We will move him to the intermediate care unit. Requested the public health registrar and ID to be involved as he is not getting better. Family wants patient to be full code. Palliative on board. After putting on BiPAP, his sats are improving at 95 with the BiPAP at 60% FiO2. His blood pressure is quite elevated. - Objective Vital Signs & Weight: Vital Signs (12 hours) Temp Pulse Resp BP Pulse Ox 12/11/19 10:26 95 12/11/19 10:00 93 L 12/11/19 09:05 99.8 F H 99 42 H 173/84 H 92 L 12/11/19 08:50 91 12/11/19 05:16 91 32 H 92 L 12/11/19 03:57 99.5 F 89 32 H 171/81 H 91 L 12/11/19 00:00 87 24 H 95 Weight Admit Weight 199 lb 3.2 oz Weight 203 lb 1.6 oz I&O: 12/10/19 12/11/19 12/12/19 06:59 06:59 06:59 Intake Total 1941.5 1750 Output Total 300 680 Balance 1641.5 1070 Result Diagrams: 12/08/19 04:59 12/08/19 04:59 Hospitalist ROS - Medication Medications: Active Medications Generic Name Dose Route Start Last Admin Trade Name Freq PRN Reason Stop Dose Admin Amlodipine Besylate 10 mg 12/10/19 09:00 12/11/19 08:50 Norvasc PO 10 mg DAILY DOMINGUEZ Administration Atorvastatin Calcium 10 mg 12/05/19 21:00 12/10/19 20:31 Lipitor PO 10 mg HS DOMINGUEZ Administration Cholecalciferol 2,000 units 12/06/19 09:00 12/11/19 08:50 Vitamin D3 PO 2,000 units DAILY DOMINGUEZ Administration Enoxaparin Sodium 40 mg 12/08/19 21:00 12/11/19 08:49 Lovenox SC 40 mg BID DOMINGUEZ Administration Furosemide 40 mg 12/06/19 09:00 12/11/19 08:50 Lasix PO 40 mg DAILY DOMINGUEZ Administration Guaifenesin/Dextromethorphan 15 ml 12/03/19 02:04 08/24/20 04:19 Robitussin Dm PO 15 ml Q4H PRN Administration Cough Hydralazine HCl 10 mg 12/04/19 23:36 12/05/19 04:06 Apresoline SLOW IVP 10 mg Q4H PRN Administration SBP > 180 Azithromycin 500 mg/ Sodium 250 mls @ 250 mls/hr 12/03/19 21:00 12/10/19 20: 31 Chloride IVPB 250 mls 2100 DOMINGUEZ Administration Ceftriaxone Sodium 1 gm/ 100 mls @ 200 mls/hr 12/05/19 10:00 12/11/19 08:50 Sodium Chloride IVPB 100 mls 1000 DOMINGUEZ Administration Sodium Chloride 1,000 mls @ 50 mls/hr 12/05/19 10:07 12/11/19 00:16 Normal Saline 0.9% IV 1,000 mls .Q20H DOMINGUEZ Administration Levothyroxine Sodium 50 mcg 12/06/19 09:00 12/11/19 08:50 Synthroid PO 50 mcg DAILY DOMINGUEZ Administration Megestrol Acetate 400 mg 12/11/19 09:00 12/11/19 08:49 Megace PO 400 mg DAILY DOMINGUEZ Administration Pantoprazole Sodium 40 mg 12/04/19 09:00 12/11/19 08:51 Protonix IVP 40 mg DAILY DOMINGUEZ Administration Polyethylene Glycol 17 gm 12/07/19 15:15 12/07/19 18:02 Miralax PO 17 gm DAILYPRN PRN Administration Constipation Potassium Chloride 10 meq 12/06/19 09:00 12/11/19 08:50 Klor-Con 10 PO 10 meq DAILY DOMINGUEZ Administration Senna/Docusate Sodium 1 tab 12/07/19 21:00 12/11/19 08:50 Senokot S PO 1 tab BID DOMINGUEZ Administration Sodium Chloride 10 ml 12/03/19 17:47 12/04/19 08:33 Normal Saline Pf FS 10 ml PRN PRN Administration RECONSTITUTION - Exam General Appearance: awake alert, ill appearing Eye: PERRL ENT: normocephalic atraumatic Neck: supple Heart: RRR Respiratory: tachypneic Hosp A/P - Plan #Acute hypoxic respiratory failure #Sepsis present on admission secondary to pneumonia #Pneumonia due to COVID-19 virus #Essential hypertension #History Crohn's disease #Poor p.o. intake #Physical debility -CTA was negative for PE. -Decadron daily, empiric antibiotics Zithromax. Dysphagia with poor appetite -he is on supplemental diet. -Nutrition is following. P - will continue with supportive care. Wean O2 as tolerated. -Switch Lovenox to twice a day -Follow-up on echo -CT angiogram negative for pulmonary embolism however bilateral groundglass and interstitial opacities consistent with viral infection Possible benign granuloma in the left lower lobe 1.8 x 1.5 cm with central calcification Coronary artery atherosclerotic disease. He may need to go to a higher level care, including BiPAP placement, if he is clinically worsening, as he has tachypnea and low-grade temp and requiring high flow oxygen. Full code Accelerated hypertension -Blood pressure is on the high end he does have a hydralazine as needed -we will schedule to the [facility]. Poor p.o. intake On mechanical soft diet Echo is still pending He probably needs half-way facility placement. We will check with counter caser on Tuesday. Blood gas shows pH of 7.49 and PCO2 of 1027.8 with a PO2 of 84.1. He has acute respiratory alkalosis. will try high flow oxygen. He just weaned off from high flow oxygen yesterday. He also has overall p.o. fluid intake. He is full code. Due to his deconditioning secondary to COVID will consult palliative as well. Worsening hypoxic respiratory failure secondary to COVID pneumonia. Tachypneic. -We tried the last 2 to 3 days with a high flow oxygen and trying to wean him off. And not successful. He is clinically getting worse so will move him to the [facility] for a trial of BiPAP. -Family still wants him to be full code. -Due to clinically not getting better, I have consulted the palliative. As patient is still a full code.. - I started him on a appetite stimulant yesterday Echo cannot be done due to COVID being positive. -Appreciate greatly Dr. Zuleta's help.
[2019-12-11] MEDS ORDERED: Senokot S 8.6-50 MG TAB PO PRN (11:42)
[2019-12-11 11:44] LABS: Hemoglobin 12.9 g/dL (14.0-18.0); Mean Corpuscular Hemoglobin 28.1 pg (27.0-31.0); Mean Corpuscular Volume 87.9 fL (78.0-98.0); Mean Platelet Volume 8.7 fL (7.4-10.4); Platelet Count 195 thou/uL (130-400); RBC Distribution Width 14.3 % (11.5-14.5); Red Blood Cell (RBC) Count 4.59 mill/uL (4.70-6.10); White Blood Cell (WBC) Count 9.9 thou/uL (4.8-10.8)
[2019-12-11] MEDS ORDERED: methylPREDNISolone Sod Succ 40 MG VIAL IVP SCH (12:00)
[2019-12-11 12:11] LABS: ALT (SGPT) 19 U/L (8-55); AST (SGOT) 37 U/L (5-34); Albumin 2.7 g/dL (3.4-4.8); Alkaline Phosphatase 58 U/L (40-110); Anion Gap 12 mmol/L (10-20); BUN (Urea Nitrogen) 15 mg/dL (8.4-25.7); Bilirubin, Total 0.8 mg/dL (0.2-1.2); CRP (Inflammatory) 15.07 mg/dL (= or < 0.5); Calc. Creatinine Clearance 85 mL/min (70-130); Calcium 8.6 mg/dL (7.8-10.44); Carbon Dioxide 23 mmol/L (23-31); Chloride 102 mmol/L (98-107); Estimated GFR-MDRD Greater than 90; Glucose 108 mg/dL (83-110); Potassium 4.2 mmol/L (3.5-5.1); Protein, Total 6.7 g/dL (5.8-8.1); Sodium 133 mmol/L (136-145)
[2019-12-11 12:20] LABS: Band 4 % (5-11); Eosinophils 1 % (0-10); Lymphocytes 2 % (21-51); MDiff Complete? YES; Monocytes 2 % (0-10); Neutrophil 91 % (42-75); Platelet Morphology Comment Appears Adequate; RBC Morphology Normal
[2019-12-11] MEDS: hydrALAZINE 20 MG/ML VIAL SLOW IVP SCH ×2 (13:39→18:11)
[2019-12-11] MEDS: methylPREDNISolone Sod Succ/PF 125 MG/2 ML VIAL IVP SCH ×2 (13:40→18:11)
--- NOTE | 2019-12-11 20:54 | RAD ---
PORTABLE CHEST: Date: 12/11/2019 INDICATION: Respiratory failure. COVID-positive. COMPARISON: 12/02/2019. FINDINGS: There are bilateral confluent alveolar infiltrates which have progressed when compared to the 020 exam. These infiltrates appear diffuse throughout the right lung and are more extensive in the le ft upper lung field. IMPRESSION: Bilateral infiltrates have progressed when compared to the 12/02/2019 exam. POS: [facility]
[2019-12-11] MEDS: Azithromycin 500 MG in Sodium Chloride 0.9% 250 ML 250 ML IVPB SCH (22:03)
[2019-12-11] MEDS: Atorvastatin Calcium 10 MG TAB PO SCH (22:03)
[2019-12-12] MEDS: methylPREDNISolone Sod Succ/PF 125 MG/2 ML VIAL IVP SCH ×4 (00:43→18:29)
[2019-12-12] MEDS: hydrALAZINE 20 MG/ML VIAL SLOW IVP SCH ×4 (00:43→19:03)
[2019-12-12] MEDS: Lorazepam 2 MG/ML VIAL SLOW IVP PRN ×2 (03:05→12:20)
[2019-12-12 03:36] LABS: Actual Bicarbonate (HCO3a) 17.3 mEq/L (22-28); Base Excess (BEa) -5.5 mEq/L (-2.0 to +3.0); CO2 Tension 26.7 mmHg (35.0-45.0); Calcium, Ionized (arterial) 1.18 mmol/L (1.12-1.30); Carboxyhemoglobin (COHb) 0.2 gm% (0.0-3.0); Hemoglobin (Hb) 13.5 g/dL (14.0-18.0); Potassium - ABG Lab 3.77 mmol/L (3.70-5.30); pH, Arterial 7.43 (7.35-7.45)
[2019-12-12 03:37] LABS: Puncture Site RRA
[2019-12-12 03:38] LABS: ALV-art Gradient 540.325 (0-20)
[2019-12-12 03:44] LABS: #Lymphocytes 0.9 thou/uL (1.20-3.40); #Monocytes 0.2 thou/uL (0.11-0.59); %Basophils 0.3 % (0.0-1.0); %Eosinophils 0.2 % (0.0-10.0); %Lymphocytes 7.4 % (21.0-51.0); %Monocytes 1.9 % (0.0-10.0); %Neutrophils 90.2 % (42.0-75.0); Hemoglobin 13.5 g/dL (14.0-18.0); Mean Corpuscular HGB CONC 31.3 g/dL (32.0-36.0); Mean Corpuscular Hemoglobin 27.6 pg (27.0-31.0); Mean Corpuscular Volume 88.2 fL (78.0-98.0); Mean Platelet Volume 9.3 fL (7.4-10.4); Platelet Count 217 thou/uL (130-400); RBC Distribution Width 14.3 % (11.5-14.5); White Blood Cell (WBC) Count 12.1 thou/uL (4.8-10.8)
[2019-12-12 03:57] LABS: Anion Gap 17 mmol/L (10-20); BUN (Urea Nitrogen) 19 mg/dL (8.4-25.7); Calc. Creatinine Clearance 83 mL/min (70-130); Calcium 8.9 mg/dL (7.8-10.44); Carbon Dioxide 19 mmol/L (23-31); Chloride 103 mmol/L (98-107); Estimated GFR-MDRD Greater than 90; Glucose 170 mg/dL (83-110); Potassium 3.9 mmol/L (3.5-5.1); Sodium 135 mmol/L (136-145)
[2019-12-12] MEDS: Enoxaparin Sodium 40 MG/0.4 ML SYRINGE SC SCH ×2 (08:39→20:43)
[2019-12-12] MEDS: Furosemide 40 MG TAB PO SCH ×2 (08:40→10:34)
[2019-12-12] MEDS: Sodium Chloride 0.9% (PF) 10 ML VIAL FS PRN (08:40)
[2019-12-12] MEDS: Pantoprazole 40 MG VIAL IVP SCH (08:40)
[2019-12-12] MEDS: Megestrol Acetate 800 MG/20 ML UDCUP PO SCH ×2 (08:40→10:34)
[2019-12-12] MEDS: Amlodipine 10 MG TAB PO SCH ×2 (08:42→10:31)
[2019-12-12] MEDS: Cholecalciferol 1,000 UNITS (25 MCG) TAB PO SCH ×2 (08:42→10:34)
[2019-12-12] MEDS: Levothyroxine Sodium 50 MCG TAB PO SCH ×2 (08:42→10:34)
[2019-12-12] MEDS: cefTRIAXone\\ROCEPHIN 1 GM in Sodium Chloride 0.9% 100 ML IVPB SCH (08:55)
--- NOTE | 2019-12-12 09:26 | PRG ---
DATE OF SERVICE: 12/12/2019 SUBJECTIVE: Mr. Hutchison has done poorly over the last 24 hours. He is alternating between BiPAP and high-flow oxygen. Apparently, Palliative Care has been discussing things with the patient's family. The family is apparently wanting everything done for the patient despite his poor prognosis and says that is consistent with an advance directive. PHYSICAL EXAMINATION: VITAL SIGNS: Temperature is 97.1, pulse 85, blood pressure 123/81, and O2 saturation 100%. 24-hour intake 1290, output not quantitated. HEENT: Unremarkable. NECK: No JVD. LUNGS: Inspiratory crackles. CARDIAC: S1 and S2. Regular. ABDOMEN: Soft. EXTREMITIES: No edema. LABORATORY DATA: White blood cell count 12.1, hematocrit 43, and platelet count 217. PH 7.43, pCO2 of 26, pO2 of 68 on BiPAP, and FiO2 of 90%. Sodium 135, potassium 3.9, chloride 103, CO2 of 19, BUN 19, creatinine 0.7, and glucose 170. BNP level is 256. ASSESSMENT: 1. COVID-19 pneumonia. 2. Acute hypoxic respiratory failure. PLAN: The patient seems to be slowly worsening despite aggressive treatment. Yesterday, I went up on the steroids. I am very hesitant to intubate him because I do not think he will survive that. We are between the high-flow oxygen and BiPAP. I am hoping that Palliative Care can make some progress with the family. I might need to sit down with them and have a long discussion with them about patient's poor prognosis. Job ID: [id number]
--- NOTE | 2019-12-12 09:45 | CON ---
DATE OF CONSULTATION: 12/11/2019 REASON FOR CONSULTATION: Diffuse pneumonitis with positive COVID test before admission. HISTORY OF PRESENT ILLNESS: 89 year old who has a history of Crohn disease, hypothyroidism, and hyperlipidemia, who developed cough and some thin sputum production around 11/18 or 11/19. A few days later, he was tested for COVID and turned out to be positive. He came to [facility]. He was admitted on 11/27. On arrival, he was satting at 100% on room air. His chest x-ray did not show any infiltrates, so the decision was made not to give him any treatments. His ferritin was around 860. His CRP was 21 at [facility] on 11/27. He was discharged on 11/28, not on any specific treatment for COVID infection. On 12/01, he was found more weak and less active by family members so they called EMS. He was initially intended to be transferred back to the [facility], but he was closer to [facility] and he was brought here. On arrival, he was a little bit confused, had a temp of 101.3, so this was just 3 days after the discharge date from [facility], approximately 10 to 13 days following the onset of illness. On arrival, his O2 saturations were 94 on room air, pulse was 91, temperature was 100. There was no wheezing. There was inspiratory crackles noted in lung bases. There was increased respiratory rate, breathing about 19 to 27 times per minute. The abdomen examination was normal. He appeared to be oriented to self and otherwise the exam was nonfocal. Initial lab data with a white cell count 6.1, hemoglobin 13, platelets 124,000, and 82% neutrophils. D-dimer was greater than 20. pH 7.53, pCO2 of 24, pO2 of 42. CRP was 8.65, and I do not see a ferritin drawn. BNP was 120. Urinalysis was fairly normal. The initial chest x-ray from 12/01 with mild interstitial density in the perihilar regions. The patient was given Decadron, but no antiviral treatment. He deteriorated and has required higher intensity of oxygen supplementation. A CT angiogram was ordered, showed no evidence of pulmonary embolism and there was diffuse bilateral ground-glass and interstitial opacities. A rounded opacity in the left lower lobe, which was probably chronic. The patient now is transferred to the [facility]. He is on BiPAP after a brief trial of high-flow nasal cannula O2. He is awake. He follows commands. He denies any pain at the moment. He has not had diarrhea. PAST MEDICAL HISTORY: 1. Hypothyroidism. 2. Hyperlipidemia. 3. Crohn disease. Medical history otherwise includes abdominal surgery for Crohn disease. SOCIAL HISTORY: [place] here [place] town. Former smoker, quit less than 10 years ago. He is retired. ALLERGIES: NONE. MEDICATION LIST: 1. Rocephin. 2. Azithromycin. 3. Methylprednisolone. 4. Megace. 5. Pantoprazole. 6. MiraLAX. 7. Enoxaparin 40 b.i.d. 8. Furosemide. 9. Norvasc. PHYSICAL EXAMINATION: VITAL SIGNS: Current vital signs; T-max 99.8, his pulse 99, respirations 42, O2 saturations ranging from 91 to 95, now he is on BiPAP, FiO2 of 75, BP 170/84. SKIN: No major areas of breakdown. Just, a very small area of breakdown in the presacral region. Peripheral IV access. He is voiding in a diaper. No lymphadenopathy. HEENT: Arcus senilis. Sclerae are white. Conjunctivae somewhat pale. Oral cavity, no [place] teeth remaining. NECK: Supple. LUNGS: With symmetric breath sounds, coarse with crackles at the bases. No wheezing. HEART: S1 and S2. Regular rate. No S3 or S4. ABDOMEN: Soft, not distended or tender. No ascites. No bladder distention. No genital abnormalities. EXTREMITIES: No joint inflammatory activity. No edema. Pulses 1+ in dorsalis pedis. He is able to move all 4 extremities, but is diffusely weak. NEUROLOGIC: He is awake, knows his name and could not tell me where he was. Communication was limited though because of the BiPAP mask. LABORATORY DATA: White cell count 7.2, hemoglobin 11.5, and platelets 182 with 86% neutrophils. Last creatinine 0.77. CRP has gone up from 9 to 15.07. Albumin 2.7. ASSESSMENT: Crohn disease, unknown prior treatment history except for surgical interventions, now with initially benign COVID pneumonia presentation now going on the end of the 3rd week with clear-cut inflammatory changes and diffuse alveolar damage acute respiratory distress syndrome, requiring BiPAP. Unfortunately, he probably will end up requiring mechanical ventilation if he has advanced directives that allow aggressive management. At this point in time, the only resource that we have is anti-inflammatory treatment. He is getting antimicrobials too. He will be at risk for fungal super infections, but is too early yet for those. Unfortunately, the outcome that is not looking good in terms of survival. Job ID: [id number]
[2019-12-12 12:23] VITALS: BMI 27.5
--- NOTE | 2019-12-12 13:38 | PDOC.HOSPP ---
- Subjective Encounter Date: 12/12/19 Encounter Time: 10:20 Subjective: Patient is not responding much he is worse than yesterday. He is declining faster 2 days prior he is more alert and able to talk. Since yesterday he is declining. He is still on BiPAP but with a T-piece not with the mask. He is barely responding for verbal. He is not able to swallow anything speech therapy followed him. I called his around 1:30 PM for update. I did address the CODE STATUS. She says that she still wants him to be full code and everything is in the paper. She wants to know whether she would be able to come and see him. I checked with the charge nurse and we are going to bring her in and see whether she would be able to change her mind seeing her as 's clinical condition. - Objective Vital Signs & Weight: Vital Signs (12 hours) Temp Pulse Resp BP BP Pulse Ox 12/12/19 12:13 95 133/96 H 12/12/19 12:00 98.5 F 95 30 H 133/96 H 98 12/12/19 10:31 91 12/12/19 08:00 97.7 F 91 34 H 104/57 L 100 12/12/19 07:35 97 35 H 12/12/19 06:50 102 H 12/12/19 04:36 97.1 F L 12/12/19 04:22 97.4 F L 38 H 12/12/19 02:28 102 H 34 H Weight Admit Weight 199 lb 3.2 oz Weight 203 lb 1.6 oz Most Recent Monitor Data Heart Rate from ECG 92 NIBP 108/62 NIBP BP-Mean 77 Respiration from ECG 39 SpO2 94 I&O: 12/11/19 12/12/19 12/13/19 06:59 06:59 06:59 Intake Total 1750 1290 Output Total 680 Balance 1070 1290 Result Diagrams: 12/12/19 03:09 12/12/19 03:09 Hospitalist ROS - Medication Medications: Active Medications Generic Name Dose Route Start Last Admin Trade Name Freq PRN Reason Stop Dose Admin Amlodipine Besylate 10 mg 12/10/19 09:00 12/12/19 10:31 Norvasc PO Not Given DAILY DOMINGUEZ Atorvastatin Calcium 10 mg 12/05/19 21:00 08/25/20 22:03 Lipitor PO 10 mg HS DOMINGUEZ Administration Cholecalciferol 2,000 units 12/06/19 09:00 12/12/19 10:34 Vitamin D3 PO Not Given DAILY [facility] Enoxaparin Sodium 40 mg 12/08/19 21:00 12/12/19 08:39 Lovenox SC 40 mg BID DOMINGUEZ Administration Furosemide 40 mg 12/06/19 09:00 12/12/19 10:34 Lasix PO Not Given DAILY [facility] Guaifenesin/Dextromethorphan 15 ml 12/03/19 02:04 12/10/19 04:19 Robitussin Dm PO 15 ml Q4H PRN Administration Cough Hydralazine HCl 10 mg 12/04/19 23:36 12/05/19 04:06 Apresoline SLOW IVP 10 mg Q4H PRN Administration SBP > 180 Hydralazine HCl 20 mg 12/11/19 12:00 12/12/19 12:13 Apresoline SLOW IVP Not Given Q6HR DOMINGUEZ Azithromycin 500 mg/ Sodium 250 mls @ 250 mls/hr 12/03/19 21:00 12/11/19 22: 03 Chloride IVPB 250 mls 2100 DOMINGUEZ Administration Ceftriaxone Sodium 1 gm/ 100 mls @ 200 mls/hr 12/05/19 10:00 12/12/19 08:55 Sodium Chloride IVPB 100 mls 1000 DOMINGUEZ Administration Sodium Chloride 1,000 mls @ 50 mls/hr 12/05/19 10:07 12/11/19 22:02 Normal Saline 0.9% IV 1,000 mls .Q20H DOMINGUEZ Administration Levothyroxine Sodium 50 mcg 12/06/19 09:00 12/12/19 10:34 Synthroid PO Not Given DAILY [facility] Lorazepam 1 mg 12/11/19 16:21 12/12/19 12:20 Ativan SLOW IVP 12/12/19 16:00 1 mg Q6H PRN Administration Anxiety/Agitation Megestrol Acetate 400 mg 12/11/19 09:00 12/12/19 10:34 Megace PO Not Given DAILY [facility] Methylprednisolone Sodium Succinate 60 mg 12/11/19 12:00 12/12/19 11:40 Solu-Medrol IVP 60 mg Q6HR DOMINGUEZ Administration Pantoprazole Sodium 40 mg 12/04/19 09:00 08/26/20 08:40 Protonix IVP 40 mg DAILY DOMINGUEZ Administration Polyethylene Glycol 17 gm 12/07/19 15:15 12/07/19 18:02 Miralax PO 17 gm DAILYPRN PRN Administration Constipation Sodium Chloride 10 ml 12/03/19 17:47 12/12/19 08:40 Normal Saline Pf FS 10 ml PRN PRN Administration RECONSTITUTION - Exam General Appearance: ill appearing General - other findings: Minimal response he is on BiPAP with a T-piece Eye: PERRL, anicteric sclera ENT: normocephalic atraumatic Neck: supple Heart: RRR Respiratory: CTAB, normal chest expansion Gastrointestinal: normal bowel sounds Neurological: no focal deficits Musculoskeletal: generalized weakness Psychiatric: oriented to person Hosp A/P - Plan #Acute hypoxic respiratory failure #Sepsis present on admission secondary to pneumonia #Pneumonia due to COVID-19 virus #Essential hypertension #History Crohn's disease #Poor p.o. intake #Physical debility -CTA was negative for PE. -Decadron daily, empiric antibiotics Zithromax. Dysphagia with poor appetite -he is on supplemental diet. -Nutrition is following. P - will continue with supportive care. Wean O2 as tolerated. -Switch Lovenox to twice a day -Follow-up on echo -CT angiogram negative for pulmonary embolism however bilateral groundglass and interstitial opacities consistent with viral infection Possible benign granuloma in the left lower lobe 1.8 x 1.5 cm with central calcification Coronary artery atherosclerotic disease. He may need to go to a higher level care, including BiPAP placement, if he is clinically worsening, as he has tachypnea and low-grade temp and requiring high flow oxygen. Full code Accelerated hypertension -Blood pressure is on the high end he does have a hydralazine as needed -we will schedule to the [facility]. Poor p.o. intake On mechanical soft diet Echo is still pending He probably needs custodial facility placement. We will check with transplant case manager on Tuesday. Blood gas shows pH of 7.49 and PCO2 of 1027.8 with a PO2 of 84.1. He has acute respiratory alkalosis. will try high flow oxygen. He just weaned off from high flow oxygen yesterday. He also has overall p.o. fluid intake. He is full code. Due to his deconditioning secondary to COVID will consult palliative as well. Worsening hypoxic respiratory failure secondary to COVID pneumonia. Tachypneic. -We tried the last 2 to 3 days with a high flow oxygen and trying to wean him off. And not successful. He is clinically getting worse so will move him to the [facility] for a trial of BiPAP. -Family still wants him to be full code. -Due to clinically not getting better, I have consulted the palliative. As patient is still a full code.. - I started him on a appetite stimulant yesterday Echo cannot be done due to COVID being positive. -Appreciate greatly Dr. Zuleta's help. He is declining faster 2 days prior he is more alert and able to talk. Since yesterday he is declining. He is still on BiPAP but with a T-piece not with the mask. He is barely responding for verbal. He is not able to swallow anything speech therapy followed him. I called his around 1:30 PM for update. I did address the CODE STATUS. She says that she still wants him to be full code and everything is in the paper. She wants to know whether she would be able to come and see him. I checked with the charge nurse and we are going to bring her in and see whether she would be able to change her mind seeing her as 's clinical condition. DC'd his most of the p.o. medications. Keep only essential IV meds for now Updated palliative care.
--- NOTE | 2019-12-12 16:03 | EKG ---
Test Reason : Blood Pressure : / mmHG Vent. Rate : 095 BPM Atrial Rate : 095 BPM P-R Int : 158 ms QRS Dur : 086 ms QT Int : 338 ms P-R-T Axes : 028 -07 071 degrees QTc Int : 424 ms Normal sinus rhythm Inferior infarct , age undetermined Abnormal ECG Confirmed by GAYLE KING ([id number]), scientific publications editor PAULO QUIROGA ([id number] on 12/12/2019 4:03:13 PM Referred By: Confirmed By:GAYLE Gaytan
[2019-12-12] MEDS: Sodium Chloride 0.9% 1,000 ML IV SCH (18:34)
[2019-12-12] MEDS: Azithromycin 500 MG in Sodium Chloride 0.9% 250 ML 250 ML IVPB SCH (20:43)
[2019-12-12] MEDS: Atorvastatin Calcium 10 MG TAB PO SCH (20:44)
[2019-12-13] MEDS: methylPREDNISolone Sod Succ/PF 125 MG/2 ML VIAL IVP SCH ×4 (00:14→18:32)
[2019-12-13] MEDS: hydrALAZINE 20 MG/ML VIAL SLOW IVP SCH ×4 (00:14→18:32)
[2019-12-13] MEDS ORDERED: Lorazepam 2 MG/ML VIAL ONE ×2 (00:57→02:13)
[2019-12-13] MEDS ORDERED: Lorazepam 2 MG/ML VIAL SLOW IVP SCH ×2 (01:00→02:30)
[2019-12-13 02:26] LABS: Actual Bicarbonate (HCO3a) 19.7 mEq/L (22-28); Base Excess (BEa) -4.9 mEq/L (-2.0 to +3.0); CO2 Tension 35.3 mmHg (35.0-45.0); Carboxyhemoglobin (COHb) 0.3 gm% (0.0-3.0); Hemoglobin (Hb) 13.3 g/dL (14.0-18.0); Potassium - ABG Lab 3.56 mmol/L (3.70-5.30); pH, Arterial 7.37 (7.35-7.45)
[2019-12-13 02:52] LABS: O2 Tension (PaO2), arterial 59.2 mmHg (> 60.0)
[2019-12-13 02:53] LABS: ALV-art Gradient 609.675 (0-20); Puncture Site RRA
[2019-12-13 04:10] LABS: #Lymphocytes 0.6 thou/uL (1.20-3.40); #Monocytes 0.3 thou/uL (0.11-0.59); #Neutrophils 13.4 thou/uL (1.40-6.50); %Basophils 0.1 % (0.0-1.0); %Lymphocytes 4.1 % (21.0-51.0); %Monocytes 2.2 % (0.0-10.0); %Neutrophils 93.6 % (42.0-75.0); Hemoglobin 13.2 g/dL (14.0-18.0); Mean Corpuscular HGB CONC 31.7 g/dL (32.0-36.0); Mean Corpuscular Hemoglobin 28.9 pg (27.0-31.0); Mean Platelet Volume 9.7 fL (7.4-10.4); Platelet Count 212 thou/uL (130-400); RBC Distribution Width 14.6 % (11.5-14.5); Red Blood Cell (RBC) Count 4.58 mill/uL (4.70-6.10); White Blood Cell (WBC) Count 14.3 thou/uL (4.8-10.8)
[2019-12-13 04:28] LABS: Anion Gap 20 mmol/L (10-20); BUN (Urea Nitrogen) 22 mg/dL (8.4-25.7); Calc. Creatinine Clearance 84 mL/min (70-130); Carbon Dioxide 18 mmol/L (23-31); Chloride 106 mmol/L (98-107); Estimated GFR-MDRD Greater than 90; Glucose 160 mg/dL (83-110); Potassium 4.2 mmol/L (3.5-5.1); Sodium 140 mmol/L (136-145)
[2019-12-13] MEDS ORDERED: Morphine 2 MG/ML VIAL SLOW IVP SCH (04:45)
--- NOTE | 2019-12-13 05:13 | PDOC.EVN ---
Event Note - Event Note Event Note: Patient with extended period of desaturation, recovered eventually with ativan for agitation, however called in family (entire family 10 people or so including ) to discuss code status, all risks and benefits of covid 19 with end stage respiratory disease laid out in detail, all questions answered, family believes patient would not want breathing tube if would not be likely to recover from that point. Patient to be made DNAR, otherwise will continue current care. ordered entered. time of advanced care planning 20 minutes
--- NOTE | 2019-12-13 07:39 | RAD ---
Portable frontal chest radiograph: 12/13/2019 COMPARISON: 12/11/2019 HISTORY: Covid pneumonia, respiratory distress, tachypnea, hypoxia FINDINGS: There is extensive interstitial opacity throughout both lungs with superimposed ground glas s alveolar opacity, right greater than left. Distribution of bilateral pulmonary parenchymal opacities is similar when compared to the prior examination. Aeration is slightly worsened within the left lung base and slightly improved in bilateral upper lobe regions. No large volume pleural effusion or evidence of pneumothorax. Atherosclerotic calcification of the aortic arch noted. IMPRESSION: Findings consistent with multi lobar infectious pneumonitis, in keeping with the provided history of Covid pneumonia.
--- NOTE | 2019-12-13 09:13 | PRG ---
DATE OF SERVICE: 12/13/2019 SUBJECTIVE: With continued deterioration overnight, the patient's family has made him DNR. He remains on BiPAP. OBJECTIVE: VITAL SIGNS: Temperature 97, pulse 107, blood pressure 129/75, O2 saturation 97%, and respiratory rate is about 47. GENERAL: He appears uncomfortable and in distress. HEENT: Unremarkable. LUNGS: Crackles bilaterally. CARDIAC: S1 and S2. Regular. LABORATORY DATA: White blood cell count 14.3, hematocrit 41.7, and platelet count 212. Sodium 140, potassium 4.2, chloride 106, CO2 of 18, BUN 22, creatinine 0.7, and glucose 160. A chest film demonstrates bilateral infiltrates ASSESSMENT: 1. COVID-19 pneumonia with continued respiratory compromise. 2. Acute respiratory failure, requiring mechanical ventilation. PLAN: This patient's odds of survival are very low, given his advanced age and the degree of hypoxemia. I would recommend considering withdrawal of care at this point. Job ID: [id number]
[2019-12-13] MEDS: Levothyroxine Sodium 50 MCG TAB PO SCH (10:06)
[2019-12-13] MEDS: Cholecalciferol 1,000 UNITS (25 MCG) TAB PO SCH (10:06)
[2019-12-13] MEDS: Megestrol Acetate 800 MG/20 ML UDCUP PO SCH (10:07)
[2019-12-13] MEDS: Enoxaparin Sodium 40 MG/0.4 ML SYRINGE SC SCH ×2 (11:13→20:49)
[2019-12-13] MEDS: Pantoprazole 40 MG VIAL IVP SCH (11:13)
[2019-12-13] MEDS: cefTRIAXone\\ROCEPHIN 1 GM in Sodium Chloride 0.9% 100 ML IVPB SCH (11:16)
[2019-12-13] MEDS: Sodium Chloride 0.9% 1,000 ML IV SCH (11:17)
--- NOTE | 2019-12-13 12:59 | PDOC.HOSPP ---
- Subjective Encounter Date: 12/13/19 Encounter Time: 12:10 Subjective: To the nurse. Patient is still on BiPAP but his blood his prognosis remains very guarded. came last evening and have lots of family members came by this cash applications analyst. His CODE STATUS changed to DN AR. Reviewed Dr. Zuleta's note on the prognosis. - Objective Vital Signs & Weight: Vital Signs (12 hours) Temp Pulse 12/13/19 12:00 98.6 F 12/13/19 11:17 98 12/13/19 08:00 97.8 F 12/13/19 04:50 97.0 F L 12/13/19 04:00 96.1 F L Weight Admit Weight 199 lb 3.2 oz Weight 203 lb 1.6 oz Most Recent Monitor Data Heart Rate from ECG 107 NIBP 145/100 NIBP BP-Mean 115 Respiration from ECG 40 SpO2 99 I&O: 12/12/19 12/13/19 12/14/19 06:59 06:59 06:59 Intake Total 1290 1600 Balance 1290 1600 Result Diagrams: 12/13/19 03:13 12/13/19 03:13 Hospitalist ROS - Medication Medications: Active Medications Generic Name Dose Route Start Last Admin Trade Name Freq PRN Reason Stop Dose Admin Atorvastatin Calcium 10 mg 12/05/19 21:00 12/12/19 20:44 Lipitor PO Not Given HS DOMINGUEZ Cholecalciferol 2,000 units 12/06/19 09:00 12/13/19 10:06 Vitamin D3 PO Not Given DAILY DOMINGUEZ Enoxaparin Sodium 40 mg 12/08/19 21:00 12/13/19 11:13 Lovenox SC 40 mg BID DOMINGUEZ Administration Guaifenesin/Dextromethorphan 15 ml 12/03/19 02:04 12/10/19 04:19 Robitussin Dm PO 15 ml Q4H PRN Administration Cough Hydralazine HCl 10 mg 12/04/19 23:36 12/05/19 04:06 Apresoline SLOW IVP 10 mg Q4H PRN Administration SBP > 180 Hydralazine HCl 20 mg 12/11/19 12:00 12/13/19 11:17 Apresoline SLOW IVP Not Given Q6HR DOMINGUEZ Azithromycin 500 mg/ Sodium 250 mls @ 250 mls/hr 12/03/19 21:00 12/12/19 20: 43 Chloride IVPB 250 mls 2100 DOMINGUEZ Administration Ceftriaxone Sodium 1 gm/ 100 mls @ 200 mls/hr 12/05/19 10:00 12/13/19 11:16 Sodium Chloride IVPB 100 mls 1000 DOMINGUEZ Administration Sodium Chloride 1,000 mls @ 50 mls/hr 12/05/19 10:07 12/13/19 11:17 Normal Saline 0.9% IV Not Given .Q20H DOMINGUEZ Levothyroxine Sodium 50 mcg 12/06/19 09:00 12/13/19 10:06 Synthroid PO Not Given DAILY DOMINGUEZ Megestrol Acetate 400 mg 12/11/19 09:00 12/13/19 10:07 Megace PO Not Given DAILY DOMINGUE[facility] Methylprednisolone Sodium Succinate 60 mg 12/11/19 12:00 12/13/19 11:16 Solu-Medrol IVP 60 mg Q6HR DOMINGUEZ Administration Pantoprazole Sodium 40 mg 12/04/19 09:00 12/13/19 11:13 Protonix IVP 40 mg DAILY DOMINGUEZ Administration Polyethylene Glycol 17 gm 12/07/19 15:15 12/07/19 18:02 Miralax PO 17 gm DAILYPRN PRN Administration Constipation Sodium Chloride 10 ml 12/03/19 17:47 12/12/19 08:40 Normal Saline Pf FS 10 ml PRN PRN Administration RECONSTITUTION - Exam General Appearance: ill appearing General - other findings: bipap lethargic Eye: PERRL ENT: normocephalic atraumatic Neck: supple Neurological: no focal deficits Psychiatric: not oriented Hosp A/P - Plan #Acute hypoxic respiratory failure #Sepsis present on admission secondary to pneumonia #Pneumonia due to COVID-19 virus #Essential hypertension #History Crohn's disease #Poor p.o. intake #Physical debility -CTA was negative for PE. -Decadron daily, empiric antibiotics Zithromax. Dysphagia with poor appetite -he is on supplemental diet. -Nutrition is following. P - will continue with supportive care. Wean O2 as tolerated. -Switch Lovenox to twice a day -Follow-up on echo -CT angiogram negative for pulmonary embolism however bilateral groundglass and interstitial opacities consistent with viral infection Possible benign granuloma in the left lower lobe 1.8 x 1.5 cm with central calcification Coronary artery atherosclerotic disease. He may need to go to a higher level care, including BiPAP placement, if he is clinically worsening, as he has tachypnea and low-grade temp and requiring high flow oxygen. Full code Accelerated hypertension -Blood pressure is on the high end he does have a hydralazine as needed -we will schedule to the [facility]. Poor p.o. intake On mechanical soft diet Echo is still pending He probably needs detention facility placement. We will check with case hardener on Tuesday. Blood gas shows pH of 7.49 and PCO2 of 1027.8 with a PO2 of 84.1. He has acute respiratory alkalosis. will try high flow oxygen. He just weaned off from high flow oxygen yesterday. He also has overall p.o. fluid intake. He is full code. Due to his deconditioning secondary to COVID will consult palliative as well. Worsening hypoxic respiratory failure secondary to COVID pneumonia. Tachypneic. -We tried the last 2 to 3 days with a high flow oxygen and trying to wean him off. And not successful. He is clinically getting worse so will move him to the [facility] for a trial of BiPAP. -Family still wants him to be full code. -Due to clinically not getting better, I have consulted the palliative. As patient is still a full code.. - I started him on a appetite stimulant yesterday Echo cannot be done due to COVID being positive. -Appreciate greatly Dr. Zuleta's help. He is declining faster 2 days prior he is more alert and able to talk. Since yesterday he is declining. He is still on BiPAP but with a T-piece not with the mask. He is barely responding for verbal. He is not able to swallow anything speech therapy followed him. I called his around 1:30 PM for update. I did address the CODE STATUS. She says that she still wants him to be full code and everything is in the paper. She wants to know whether she would be able to come and see him. I checked with the charge nurse and we are going to bring her in and see whether she would be able to change her mind seeing her as 's clinical condition. DC'd his most of the p.o. medications. Keep only essential IV meds for now Updated palliative care. Talk to the yesterday, family visited early this morning. until yesterday afternoon wants her spouse to be full code and later knowing worsening of his clinical condition, status changed to DNR. He is DNAR Consideration for withdrawal of care.
[2019-12-13] MEDS: Atorvastatin Calcium 10 MG TAB PO SCH (20:49)
[2019-12-14] MEDS: methylPREDNISolone Sod Succ/PF 125 MG/2 ML VIAL IVP SCH ×4 (02:49→17:57)
[2019-12-14] MEDS: Azithromycin 500 MG in Sodium Chloride 0.9% 250 ML 250 ML IVPB SCH (02:49)
[2019-12-14] MEDS: hydrALAZINE 20 MG/ML VIAL SLOW IVP SCH ×4 (03:59→17:47)
[2019-12-14 04:28] LABS: Anion Gap 16 mmol/L (10-20); BUN (Urea Nitrogen) 25 mg/dL (8.4-25.7); Calc. Creatinine Clearance 84 mL/min (70-130); Calcium 9.1 mg/dL (7.8-10.44); Carbon Dioxide 22 mmol/L (23-31); Chloride 114 mmol/L (98-107); Estimated GFR-MDRD Greater than 90; Glucose 144 mg/dL (83-110); Potassium 4.2 mmol/L (3.5-5.1); Sodium 148 mmol/L (136-145)
[2019-12-14 05:08] LABS: Band 8 % (5-11); Hemoglobin 12.1 g/dL (14.0-18.0); Lymphocytes 1 % (21-51); MDiff Complete? YES; Mean Corpuscular HGB CONC 30.8 g/dL (32.0-36.0); Mean Corpuscular Hemoglobin 28.2 pg (27.0-31.0); Mean Corpuscular Volume 91.4 fL (78.0-98.0); Mean Platelet Volume 9.6 fL (7.4-10.4); Neutrophil 91 % (42-75); Platelet Count 167 thou/uL (130-400); RBC Distribution Width 14.6 % (11.5-14.5); Red Blood Cell (RBC) Count 4.29 mill/uL (4.70-6.10); White Blood Cell (WBC) Count 15.5 thou/uL (4.8-10.8)
[2019-12-14] MEDS: Sodium Chloride 0.9% 1,000 ML IV SCH (08:03)
--- NOTE | 2019-12-14 09:57 | PRG ---
DATE OF SERVICE: 12/14/2019 SUBJECTIVE: The patient remains on noninvasive ventilation, has not improved any. OBJECTIVE: VITAL SIGNS: On exam, pulse 104, blood pressure 113/80, O2 saturation 100%, and respiratory rate 41. HEENT: Unchanged. LUNGS: Crackles bilaterally. LABORATORY DATA: Sodium 148, potassium 4.2, BUN 25, and creatinine 0.7. White blood cell count 15, hematocrit 39.2, and platelet count 167. ASSESSMENT: 1. COVID-19 pneumonia. 2. Advanced age. 3. Acute hypoxic respiratory failure with no evidence of improvement. RECOMMENDATIONS: This patient really has no reasonable hope for survival. He has been made DNR. I would encourage withdrawal of care and palliating his symptoms. Job ID: [id number]
[2019-12-14] MEDS: Enoxaparin Sodium 40 MG/0.4 ML SYRINGE SC SCH ×2 (10:00→19:45)
[2019-12-14] MEDS: cefTRIAXone\\ROCEPHIN 1 GM in Sodium Chloride 0.9% 100 ML IVPB SCH (10:01)
[2019-12-14] MEDS: Pantoprazole 40 MG VIAL IVP SCH (10:01)
[2019-12-14] MEDS: Levothyroxine Sodium 50 MCG TAB PO SCH (10:05)
[2019-12-14] MEDS: Cholecalciferol 1,000 UNITS (25 MCG) TAB PO SCH (10:05)
[2019-12-14] MEDS: Megestrol Acetate 800 MG/20 ML UDCUP PO SCH (10:06)
--- NOTE | 2019-12-14 13:51 | PDOC.HOSPP ---
- Subjective Encounter Date: 12/14/19 Encounter Time: 10:00 Subjective: Patient on BiPAP with 100% FiO2. He is not responding much. He is clinically deteriorating rapidly. Discussed with RN. Worsening respiratory woodward despite with BiPAP. Metabolic encephalopathy Increasing white count with 15,000 today Hypernatremia with a sodium of 148-- - Objective Vital Signs & Weight: Vital Signs (12 hours) Temp Pulse Resp BP Pulse Ox 12/14/19 12:45 104 H 114/74 12/14/19 12:00 98.2 F 12/14/19 08:00 98.5 F 100 12/14/19 05:45 104 H 12/14/19 04:00 98.4 F 12/14/19 03:59 104 H 12/14/19 02:20 104 H 43 H Weight Admit Weight 199 lb 3.2 oz Weight 203 lb 1.6 oz Most Recent Monitor Data Heart Rate from ECG 113 NIBP 116/66 NIBP BP-Mean 82 Respiration from ECG 35 SpO2 96 I&O: 12/13/19 12/14/19 12/15/19 06:59 06:59 06:59 Intake Total 1600 550 Balance 1600 550 Result Diagrams: 12/14/19 03:39 12/14/19 03:39 Hospitalist ROS - Medication Medications: Active Medications Generic Name Dose Route Start Last Admin Trade Name Freq PRN Reason Stop Dose Admin Atorvastatin Calcium 10 mg 12/05/19 21:00 12/13/19 20:49 Lipitor PO Not Given HS [facility] Cholecalciferol 2,000 units 12/06/19 09:00 12/14/19 10:05 Vitamin D3 PO Not Given DAILY [facility] Enoxaparin Sodium 40 mg 12/08/19 21:00 12/14/19 10:00 Lovenox SC 40 mg BID DOMINGUEZ Administration Guaifenesin/Dextromethorphan 15 ml 12/03/19 02:04 12/10/19 04:19 Robitussin Dm PO 15 ml Q4H PRN Administration Cough Hydralazine HCl 10 mg 12/04/19 23:36 12/05/19 04:06 Apresoline SLOW IVP 10 mg Q4H PRN Administration SBP > 180 Hydralazine HCl 20 mg 12/11/19 12:00 12/14/19 12:45 Apresoline SLOW IVP Not Given Q6HR DOMINGUEZ Ceftriaxone Sodium 1 gm/ 100 mls @ 200 mls/hr 12/05/19 10:00 12/14/19 10:01 Sodium Chloride IVPB 100 mls 1000 DOMINGUEZ Administration Sodium Chloride 1,000 mls @ 50 mls/hr 12/05/19 10:07 12/14/19 08:03 Normal Saline 0.9% IV Not Given .Q20H DOMINGUEZ Levothyroxine Sodium 50 mcg 12/06/19 09:00 12/14/19 10:05 Synthroid PO Not Given DAILY DOMINGUEZ Megestrol Acetate 400 mg 12/11/19 09:00 12/14/19 10:06 Megace PO Not Given DAILY DOMINGUEZ Methylprednisolone Sodium Succinate 60 mg 12/11/19 12:00 12/14/19 13:14 Solu-Medrol IVP 60 mg Q6HR DOMINGUEZ Administration Pantoprazole Sodium 40 mg 12/04/19 09:00 12/14/19 10:01 Protonix IVP 40 mg DAILY DOMINGUEZ Administration Polyethylene Glycol 17 gm 12/07/19 15:15 12/07/19 18:02 Miralax PO 17 gm DAILYPRN PRN Administration Constipation Sodium Chloride 10 ml 12/03/19 17:47 12/12/19 08:40 Normal Saline Pf FS 10 ml PRN PRN Administration RECONSTITUTION - Exam General Appearance: ill appearing Eye: PERRL ENT: normocephalic atraumatic Neck: supple Respiratory: normal chest expansion Psychiatric: not oriented Hosp A/P - Plan #Acute hypoxic respiratory failure #Sepsis present on admission secondary to pneumonia #Pneumonia due to COVID-19 virus #Essential hypertension #History Crohn's disease #Poor p.o. intake #Physical debility -CTA was negative for PE. -Decadron daily, empiric antibiotics Zithromax. Dysphagia with poor appetite -he is on supplemental diet. -Nutrition is following. P - will continue with supportive care. Wean O2 as tolerated. -Switch Lovenox to twice a day -Follow-up on echo -CT angiogram negative for pulmonary embolism however bilateral groundglass and interstitial opacities consistent with viral infection Possible benign granuloma in the left lower lobe 1.8 x 1.5 cm with central calcification Coronary artery atherosclerotic disease. He may need to go to a higher level care, including BiPAP placement, if he is clinically worsening, as he has tachypnea and low-grade temp and requiring high flow oxygen. Full code Accelerated hypertension -Blood pressure is on the high end he does have a hydralazine as needed -we will schedule to the [facility]. Poor p.o. intake On mechanical soft diet Echo is still pending He probably needs fpc facility placement. We will check with residential case manager on Tuesday. Blood gas shows pH of 7.49 and PCO2 of 1027.8 with a PO2 of 84.1. He has acute respiratory alkalosis. will try high flow oxygen. He just weaned off from high flow oxygen yesterday. He also has overall p.o. fluid intake. He is full code. Due to his deconditioning secondary to COVID will consult palliative as well. Worsening hypoxic respiratory failure secondary to COVID pneumonia. Tachypneic. -We tried the last 2 to 3 days with a high flow oxygen and trying to wean him off. And not successful. He is clinically getting worse so will move him to the [facility] for a trial of BiPAP. -Family still wants him to be full code. -Due to clinically not getting better, I have consulted the palliative. As patient is still a full code.. - I started him on a appetite stimulant yesterday Echo cannot be done due to COVID being positive. -Appreciate greatly Dr. Zuleta's help. He is declining faster 2 days prior he is more alert and able to talk. Since yesterday he is declining. He is still on BiPAP but with a T-piece not with the mask. He is barely responding for verbal. He is not able to swallow anything speech therapy followed him. I called his around 1:30 PM for update. I did address the CODE STATUS. She says that she still wants him to be full code and everything is in the paper. She wants to know whether she would be able to come and see him. I checked with the charge nurse and we are going to bring her in and see whether she would be able to change her mind seeing her as 's clinical condition. DC'd his most of the p.o. medications. Keep only essential IV meds for now Updated palliative care. Talk to the yesterday, family visited early this morning. until yesterday afternoon wants her spouse to be full code and later knowing worsening of his clinical condition, status changed to DNR. He is DNAR Consideration for withdrawal of care. Worsening respiratory woodward despite with BiPAP. Metabolic encephalopathy Increasing white count with 15,000 today Hypernatremia with a sodium of 148--- reaching his maintenance fluid to D5 half NS at 50 mL an hour Prognosis quite guarded.
[2019-12-14] MEDS ORDERED: D5 1/2 NS w/40 mEq KCL 1,000 ML IV SCH (14:00)
[2019-12-14] MEDS ORDERED: Dextrose 5% w/ 20 mEq KCl 1,000 ML IV SCH (14:00)
[2019-12-14] MEDS ORDERED: D5 1/2 NS w/20 mEq KCL 1,000 ML IV SCH (14:00)
--- NOTE | 2019-12-14 14:53 | PDOC.FMACP ---
Advance Care Planning - Problem (1) Palliative care encounter Status: Acute Code(s): Z51.5 - ENCOUNTER FOR PALLIATIVE CARE (2) HTN (hypertension) Status: Acute Code(s): I10 - ESSENTIAL (PRIMARY) HYPERTENSION (3) Hx of Crohn's disease Status: Acute Code(s): Z87.19 - PERSONAL HISTORY OF OTHER DISEASES OF THE DIGESTIVE SYSTEM (4) Pneumonia due to COVID-19 virus Status: Acute Code(s): U07.1 - COVID-19; J12.89 - OTHER VIRAL PNEUMONIA (5) Sepsis Status: Acute Code(s): A41.9 - SEPSIS, UNSPECIFIED ORGANISM - Note Participants: family, palliative care Summary: Palliative Care revisited Advanced Care Planning with Mrs Hutchison, opportunity to decline. The diagnosis, prognosis and goals of care were discussed. Appropriate forms and documentation to accomplish the goals of care were discussed. All questions were answered. Mrs Hutchison confirms her husbands DNAR status, and it was discussed the severity of his condition. She remains hopeful for recovery, understanding of poor prognosis. The Palliative Care Team will be engaged to assist with completion of any outstanding forms as identified. Please also refer to Palliative Care notes in note section Time Spent (mins): 30
[2019-12-14] MEDS: Lorazepam 2 MG/ML VIAL SLOW IVP PRN (14:57)
[2019-12-14] MEDS: D5 1/2 NS w/20 mEq KCL 1,000 ML IV SCH (16:00)
[2019-12-14] MEDS: Atorvastatin Calcium 10 MG TAB PO SCH (19:45)
[2019-12-15] MEDS: hydrALAZINE 20 MG/ML VIAL SLOW IVP SCH ×5 (00:40→23:15)
[2019-12-15] MEDS: methylPREDNISolone Sod Succ/PF 125 MG/2 ML VIAL IVP SCH ×5 (00:40→23:16)
[2019-12-15] MEDS: Lorazepam 2 MG/ML VIAL SLOW IVP PRN ×4 (02:19→23:16)
[2019-12-15 03:29] LABS: #Lymphocytes 0.3 thou/uL (1.20-3.40); #Monocytes 0.1 thou/uL (0.11-0.59); #Neutrophils 13.8 thou/uL (1.40-6.50); %Eosinophils 0.1 % (0.0-10.0); %Monocytes 0.8 % (0.0-10.0); %Neutrophils 97.2 % (42.0-75.0); Mean Corpuscular HGB CONC 30.8 g/dL (32.0-36.0); Mean Corpuscular Hemoglobin 28.7 pg (27.0-31.0); Mean Corpuscular Volume 93.1 fL (78.0-98.0); Mean Platelet Volume 10.1 fL (7.4-10.4); Platelet Count 134 thou/uL (130-400); RBC Distribution Width 15.1 % (11.5-14.5); Red Blood Cell (RBC) Count 4.54 mill/uL (4.70-6.10); White Blood Cell (WBC) Count 14.2 thou/uL (4.8-10.8)
[2019-12-15] MEDS: D5 1/2 NS w/20 mEq KCL 1,000 ML IV SCH (04:09)
[2019-12-15 04:12] LABS: Anion Gap 16 mmol/L (10-20); BUN (Urea Nitrogen) 26 mg/dL (8.4-25.7); Calc. Creatinine Clearance 84 mL/min (70-130); Carbon Dioxide 21 mmol/L (23-31); Chloride 119 mmol/L (98-107); Estimated GFR-MDRD Greater than 90; Glucose 152 mg/dL (83-110); Potassium 4.5 mmol/L (3.5-5.1); Sodium 151 mmol/L (136-145)
[2019-12-15] MEDS: Enoxaparin Sodium 40 MG/0.4 ML SYRINGE SC SCH ×2 (09:28→21:59)
[2019-12-15] MEDS: cefTRIAXone\\ROCEPHIN 1 GM in Sodium Chloride 0.9% 100 ML IVPB SCH (09:28)
[2019-12-15] MEDS: Sodium Chloride 0.9% (PF) 10 ML VIAL FS PRN (09:30)
[2019-12-15] MEDS: Pantoprazole 40 MG VIAL IVP SCH (09:30)
[2019-12-15] MEDS: Megestrol Acetate 800 MG/20 ML UDCUP PO SCH (10:47)
[2019-12-15] MEDS: Levothyroxine Sodium 50 MCG TAB PO SCH (10:47)
--- NOTE | 2019-12-15 11:24 | PRG ---
DATE OF SERVICE: 12/15/2019 SUBJECTIVE: Sukhjinder Hutchison is an 89-year-old gentleman with lucas positive pneumonia and diffuse pulmonary infiltrates on the x-ray, lucas positive pneumonia and respiratory failure, in distress. He is encephalopathic. OBJECTIVE: VITAL SIGNS: His temperature is 97.9, respirations 30, saturations are 90%, blood pressure 106/84. CHEST: Rhonchi, crackles. CARDIAC: Normal S1, S2. No gallops. ABDOMEN: No masses. LAB[place]ORY [place]: [place] [address], H and H 13 and 42, platelet count is 134. Lytes are normal. Sodium 151. ASSESSMENT: DNR, respiratory failure, lucas positive pneumonia. We will continue comfort care. He is on steroids, antibiotics, supportive care. Job ID: [id number]
[2019-12-15] MEDS: Dextrose 5% in Water 1,000 ML IV SCH (12:54)
--- NOTE | 2019-12-15 13:14 | PDOC.HOSPP ---
- Subjective Encounter Date: 12/15/19 Encounter Time: 13:12 Subjective: Mr. Hutchison was seen today in follow-up of COVID pneumonia. He is currently on BiPAP. He is confused, and fulling at things. His hands are in restraints. He does not follow commands or answer any questions. - Objective Vital Signs & Weight: Vital Signs (12 hours) Temp Pulse Resp BP Pulse Ox 12/15/19 12:45 93 12/15/19 10:40 93 30 H 98 12/15/19 08:00 97.9 F 99 12/15/19 06:17 103 H 142/68 H 12/15/19 04:00 98.3 F 12/15/19 01:53 105 H 32 H Weight Admit Weight 199 lb 3.2 oz Weight 203 lb 1.6 oz Most Recent Monitor Data Heart Rate from ECG 104 NIBP 121/94 NIBP BP-Mean 103 Respiration from ECG 24 SpO2 99 I&O: 12/14/19 12/15/19 12/16/19 06:59 06:59 06:59 Intake Total 550 1580 Balance 550 1580 Result Diagrams: 12/15/19 03:11 12/15/19 03:11 Hospitalist ROS - Medication Medications: Active Medications Generic Name Dose Route Start Last Admin Trade Name Freq PRN Reason Stop Dose Admin Atorvastatin Calcium 10 mg 12/05/19 21:00 12/14/19 19:45 Lipitor PO Not Given HS DOMINGUEZ Enoxaparin Sodium 40 mg 12/08/19 21:00 12/15/19 09:28 Lovenox SC 40 mg BID DOMINGUEZ Administration Guaifenesin/Dextromethorphan 15 ml 12/03/19 02:04 12/10/19 04:19 Robitussin Dm PO 15 ml Q4H PRN Administration Cough Hydralazine HCl 20 mg 12/11/19 12:00 12/15/19 12:45 Apresoline SLOW IVP Not Given Q6HR DOMINGUEZ Ceftriaxone Sodium 1 gm/ 100 mls @ 200 mls/hr 12/05/19 10:00 12/15/19 09:28 Sodium Chloride IVPB 100 mls 1000 DOMINGUEZ Administration Dextrose/Water 1,000 mls @ 70 mls/hr 12/15/19 13:00 12/15/19 12:54 D5w IV 1,000 mls .[id number] DOMINGUEZ Administration Levothyroxine Sodium 50 mcg 12/06/19 09:00 12/15/19 10:47 Synthroid PO Not Given DAILY [facility]INGUEZ Lorazepam 1 mg 12/14/19 14:49 12/15/19 09:28 Ativan SLOW IVP 1 mg Q4H PRN Administration Seizures Megestrol Acetate 400 mg 12/11/19 09:00 12/15/19 10:47 Megace PO Not Given DAILY DOMINGUEZ Methylprednisolone Sodium Succinate 60 mg 12/11/19 12:00 12/15/19 12:45 Solu-Medrol IVP 60 mg Q6HR DOMINGUEZ Administration Pantoprazole Sodium 40 mg 12/04/19 09:00 12/15/19 09:30 Protonix IVP 40 mg DAILY DOMINGUEZ Administration Sodium Chloride 10 ml 12/03/19 17:47 12/15/19 09:30 Normal Saline Pf FS 10 ml PRN PRN Administration RECONSTITUTION - Exam Eye: PERRL, anicteric sclera Heart: RRR, no murmur, no gallops, no rubs, normal peripheral pulses Respiratory: rales (+ rales at both bases), rhonchi Gastrointestinal: soft, non-tender, non-distended, normal bowel sounds Extremities: no cyanosis, no edema Hosp A/P (1) Acute respiratory failure with hypoxemia Code(s): J96.01 - ACUTE RESPIRATORY FAILURE WITH HYPOXIA Status: Acute (2) Pneumonia due to COVID-19 virus Code(s): U07.1 - COVID-19; J12.89 - OTHER VIRAL PNEUMONIA Status: Acute (3) HTN (hypertension) Code(s): I10 - ESSENTIAL (PRIMARY) HYPERTENSION Status: Chronic (4) Hx of Crohn's disease Code(s): Z87.19 - PERSONAL HISTORY OF OTHER DISEASES OF THE DIGESTIVE SYSTEM Status: Chronic (5) Hypothyroidism Code(s): E03.9 - HYPOTHYROIDISM, UNSPECIFIED Status: Chronic - Plan * COVID pneumonia with acute respiratory failure- Continue respiratory support with Bi-level Non-invasive ventilation * Continue IV Solumedrol, and Rocephin * HTN- blood pressure is stable * Hypothyroidism- clinically euthyroid * Hypernatremia- will change fluids to D5W * Prognosis is guarded
[2019-12-15] MEDS: Morphine 2 MG/ML VIAL SLOW IVP PRN ×2 (13:41→16:13)
[2019-12-15] MEDS: Atorvastatin Calcium 10 MG TAB PO SCH (21:59)
[2019-12-16] MEDS: Dextrose 5% in Water 1,000 ML IV SCH ×4 (02:33→23:29)
[2019-12-16 04:09] LABS: Anion Gap 15 mmol/L (10-20); BUN (Urea Nitrogen) 26 mg/dL (8.4-25.7); Calc. Creatinine Clearance 92 mL/min (70-130); Calcium 9.2 mg/dL (7.8-10.44); Carbon Dioxide 25 mmol/L (23-31); Chloride 119 mmol/L (98-107); Estimated GFR-MDRD Greater than 90; Glucose 158 mg/dL (83-110); Potassium 4.2 mmol/L (3.5-5.1); Sodium 155 mmol/L (136-145)
[2019-12-16] MEDS: Morphine 2 MG/ML VIAL SLOW IVP PRN ×5 (04:18→23:29)
[2019-12-16 05:00] LABS: #Lymphocytes 0.4 thou/uL (1.20-3.40); #Monocytes 0.2 thou/uL (0.11-0.59); #Neutrophils 13.3 thou/uL (1.40-6.50); %Basophils 0.2 % (0.0-1.0); %Eosinophils 0.1 % (0.0-10.0); %Lymphocytes 2.5 % (21.0-51.0); %Monocytes 1.1 % (0.0-10.0); %Neutrophils 96.1 % (42.0-75.0); Anisocytosis SLIGHT = 6-15 cells (100X) (0-5/hpf); Hemoglobin 12.9 g/dL (14.0-18.0); Large Platelets SLIGHT; MDiff Complete? YES; Mean Corpuscular HGB CONC 30.2 g/dL (32.0-36.0); Mean Corpuscular Hemoglobin 27.8 pg (27.0-31.0); Mean Corpuscular Volume 92.1 fL (78.0-98.0); Mean Platelet Volume 10.6 fL (7.4-10.4); Platelet Count 112 thou/uL (130-400); Platelet Morphology Comment Appears Decreased; RBC Distribution Width 15.1 % (11.5-14.5); Red Blood Cell (RBC) Count 4.65 mill/uL (4.70-6.10); White Blood Cell (WBC) Count 13.9 thou/uL (4.8-10.8)
[2019-12-16] MEDS: methylPREDNISolone Sod Succ/PF 125 MG/2 ML VIAL IVP SCH ×4 (06:07→23:26)
[2019-12-16] MEDS: hydrALAZINE 20 MG/ML VIAL SLOW IVP SCH ×5 (06:07→23:28)
[2019-12-16] MEDS: Levothyroxine Sodium 50 MCG TAB PO SCH (09:07)
[2019-12-16] MEDS: Megestrol Acetate 800 MG/20 ML UDCUP PO SCH (09:07)
[2019-12-16] MEDS: Pantoprazole 40 MG VIAL IVP SCH (09:40)
[2019-12-16] MEDS: Enoxaparin Sodium 40 MG/0.4 ML SYRINGE SC SCH ×2 (09:40→20:22)
--- NOTE | 2019-12-16 11:10 | PRG ---
DATE OF SERVICE: 12/16/2019 SUBJECTIVE: Sukhjinder Hutchison remains on BiPAP. OBJECTIVE: VITAL SIGNS: Sats . He is on 100% FiO2. Temperature 98, pulse 94, blood pressure CHEST: Reveal crackles, no wheezing. CARDIAC: Normal S1 and S2. No gallops. ABDOMEN: No masses. LABORATORY DATA: Sodium is 155, it has gone up a little bit. Otherwise, his white count is normal. ASSESSMENT: Aldridge positive pneumonia, respiratory failure, azotemia. He is made DNR. I am told hospice may see the patient. He is started on IV fluids, D5, which I would continue, slow hydration. Prognosis is grave. Job ID: [id number]
--- NOTE | 2019-12-16 11:23 | PDOC.HOSPP ---
- Subjective Encounter Date: 12/16/19 Encounter Time: 11:21 Subjective: Mr. Hutchison was seen today in follow-up of respiratory failure due to COVID pneumonia. He is currently on BiPAP. He is encephalopathic. - Objective Vital Signs & Weight: Vital Signs (12 hours) Temp Pulse Resp Pulse Ox 12/16/19 10:54 93 33 H 95 12/16/19 08:00 97.8 F 94 L 12/16/19 06:07 93 12/16/19 04:00 97.1 F L 12/16/19 02:49 93 30 H 93 L 12/16/19 00:00 97.0 F L Weight Admit Weight 199 lb 3.2 oz Weight 203 lb 1.6 oz Most Recent Monitor Data Heart Rate from ECG 95 NIBP 137/81 NIBP BP-Mean 99 Respiration from ECG 35 SpO2 95 I&O: 12/15/19 12/16/19 12/17/19 06:59 06:59 06:59 Intake Total 1580 1795 Balance 1580 1795 Result Diagrams: 12/16/19 03:13 12/16/19 03:13 Hospitalist ROS - Medication Medications: Active Medications Generic Name Dose Route Start Last Admin Trade Name Freq PRN Reason Stop Dose Admin Atorvastatin Calcium 10 mg 12/05/19 21:00 12/15/19 21:59 Lipitor PO Not Given HS DOMINGUEZ Enoxaparin Sodium 40 mg 12/08/19 21:00 12/16/19 09:40 Lovenox SC 40 mg BID DOMINGUEZ Administration Guaifenesin/Dextromethorphan 15 ml 12/03/19 02:04 12/10/19 04:19 Robitussin Dm PO 15 ml Q4H PRN Administration Cough Hydralazine HCl 20 mg 12/11/19 12:00 12/16/19 06:07 Apresoline SLOW IVP Not Given Q6HR DOMINGUEZ Levothyroxine Sodium 50 mcg 12/06/19 09:00 12/16/19 09:07 Synthroid PO Not Given DAILY [facility]ING[facility]Z Lorazepam 1 mg 12/14/19 14:49 12/15/19 23:16 Ativan SLOW IVP 1 mg Q4H PRN Administration Seizures Megestrol Acetate 400 mg 12/11/19 09:00 12/16/19 09:07 Megace PO Not Given DAILY [facility]INGUEZ Methylprednisolone Sodium Succinate 60 mg 12/11/19 12:00 12/16/19 06:07 Solu-Medrol IVP 60 mg Q6HR DOMINGUEZ Administration Morphine Sulfate 2 mg 12/15/19 13:00 12/16/19 09:40 Morphine SLOW IVP 2 mg Q2H PRN Administration Pain Pantoprazole Sodium 40 mg 12/04/19 09:00 12/16/19 09:40 Protonix IVP 40 mg DAILY DOMINGUEZ Administration Sodium Chloride 10 ml 12/03/19 17:47 12/15/19 09:30 Normal Saline Pf FS 10 ml PRN PRN Administration RECONSTITUTION - Exam Eye: PERRL, anicteric sclera Heart: RRR, no murmur, no gallops, no rubs, normal peripheral pulses Respiratory: rales, rhonchi (+ coarse rhonchi and rales at the bases) Gastrointestinal: soft, normal bowel sounds Extremities: 1+ LE edema Hosp A/P (1) Acute respiratory failure with hypoxemia Code(s): J96.01 - ACUTE RESPIRATORY FAILURE WITH HYPOXIA Status: Acute (2) Pneumonia due to COVID-19 virus Code(s): U07.1 - COVID-19; J12.89 - OTHER VIRAL PNEUMONIA Status: Acute (3) HTN (hypertension) Code(s): I10 - ESSENTIAL (PRIMARY) HYPERTENSION Status: Chronic (4) Hx of Crohn's disease Code(s): Z87.19 - PERSONAL HISTORY OF OTHER DISEASES OF THE DIGESTIVE SYSTEM Status: Chronic (5) Hypothyroidism Code(s): E03.9 - HYPOTHYROIDISM, UNSPECIFIED Status: Chronic - Plan * COVID pneumonia with acute respiratory failure-No significant progress * Continue respiratory support with Bi-level Non-invasive ventilation * Continue IV Solumedrol, and Rocephin * HTN- blood pressure is stable * Hypothyroidism- clinically euthyroid * Hypernatremia- will change fluids to D5W * poor overall prognosis
[2019-12-16] MEDS: Lorazepam 2 MG/ML VIAL SLOW IVP PRN (17:37)
[2019-12-16] MEDS: Atorvastatin Calcium 10 MG TAB PO SCH (20:21)
[2019-12-16 23:29] VITALS: BP 105/62
[2019-12-17] MEDS: methylPREDNISolone Sod Succ/PF 125 MG/2 ML VIAL IVP SCH (06:09)
[2019-12-17] MEDS: Morphine 2 MG/ML VIAL SLOW IVP PRN ×5 (06:10→23:36)
[2019-12-17] MEDS: hydrALAZINE 20 MG/ML VIAL SLOW IVP SCH ×3 (06:25→17:11)
--- NOTE | 2019-12-17 09:00 | PRG ---
DATE OF SERVICE: 12/17/2019 SUBJECTIVE: This patient remains on BiPAP with COVID-19 pneumonia. He looks to be in respiratory distress. OBJECTIVE: VITAL SIGNS: On exam, temperature 96.9, pulse 95, blood pressure 126/86, and O2 saturation 99%. HEENT: With dry oral mucous membranes. NECK: No JVD. LUNGS: Crackles bilaterally. CARDIOVASCULAR: S1 and S2. Regular. ABDOMEN: Soft. EXTREMITIES: No edema. LABORATORY DATA: No labs recorded today. ASSESSMENT: COVID-19 pneumonia with acute respiratory failure, requiring mechanical ventilation. PLAN: I see no reasonable hope for recovery on this patient. I would think palliative care/hospice would be the best thing we could offer him. Job ID: [id number]
[2019-12-17 09:05] LABS: %Neutrophils 94.9 % (42.0-75.0); Hemoglobin 12.8 g/dL (14.0-18.0); Mean Corpuscular HGB CONC 30.4 g/dL (32.0-36.0); Mean Corpuscular Hemoglobin 28.8 pg (27.0-31.0); Mean Corpuscular Volume 94.7 fL (78.0-98.0); Platelet Count 69 thou/uL (130-400); RBC Distribution Width 15.1 % (11.5-14.5); Red Blood Cell (RBC) Count 4.45 mill/uL (4.70-6.10); White Blood Cell (WBC) Count 10.3 thou/uL (4.8-10.8)
[2019-12-17 09:21] LABS: #Lymphocytes 0.3 thou/uL (1.20-3.40); #Monocytes 0.2 thou/uL (0.11-0.59); #Neutrophils 9.7 thou/uL (1.40-6.50); %Basophils 0.1 % (0.0-1.0); %Eosinophils 0.2 % (0.0-10.0); %Lymphocytes 3.2 % (21.0-51.0); %Monocytes 1.7 % (0.0-10.0); Burr Cells SLIGHT = 2-5 cells (100X) (0-1/hpf); MDiff Complete? YES; Platelet Morphology Comment Appears Decreased; Polychromasia SLIGHT = 2-3 cells (100X) (0-2/hpf)
[2019-12-17] MEDS: Pantoprazole 40 MG VIAL IVP SCH (09:30)
[2019-12-17] MEDS: methylPREDNISolone Sod Succ 40 MG VIAL IVP SCH ×3 (09:30→21:05)
[2019-12-17] MEDS: Enoxaparin Sodium 40 MG/0.4 ML SYRINGE SC SCH ×2 (09:30→21:05)
[2019-12-17 09:39] LABS: Anion Gap 18 mmol/L (10-20); BUN (Urea Nitrogen) 27 mg/dL (8.4-25.7); Calc. Creatinine Clearance 89 mL/min (70-130); Calcium 8.7 mg/dL (7.8-10.44); Carbon Dioxide 20 mmol/L (23-31); Chloride 118 mmol/L (98-107); Estimated GFR-MDRD Greater than 90; Glucose 156 mg/dL (83-110); Potassium 4.8 mmol/L (3.5-5.1); Sodium 151 mmol/L (136-145)
--- NOTE | 2019-12-17 11:15 | PDOC.HOSPP ---
- Subjective Encounter Date: 12/17/19 Encounter Time: 11:14 Subjective: Mr. Hutchison was seen today in follow-up of COVID pneumonia. He is encephalopathic. He does not respond to commands. - Objective Vital Signs & Weight: Vital Signs (12 hours) Temp Pulse Resp BP Pulse Ox 12/17/19 08:42 94 39 H 97 12/17/19 08:00 97.6 F 97 12/17/19 06:25 100 12/17/19 04:00 96.9 F L 12/17/19 02:28 100 41 H 100 12/17/19 00:00 96.5 F L 12/16/19 23:28 96 105/62 Weight Admit Weight 199 lb 3.2 oz Weight 203 lb 1.6 oz Most Recent Monitor Data Heart Rate from ECG 99 NIBP 97/81 NIBP BP-Mean 86 Respiration from ECG 31 SpO2 96 I&O: 12/16/19 12/17/19 12/18/19 06:59 06:59 06:59 Intake Total 1795 2300 Balance 1795 2300 Result Diagrams: 12/17/19 08:44 12/17/19 08:44 Hospitalist ROS - Medication Medications: Active Medications Generic Name Dose Route Start Last Admin Trade Name Freq PRN Reason Stop Dose Admin Atorvastatin Calcium 10 mg 12/05/19 21:00 12/16/19 20:21 Lipitor PO Not Given HS DOMINGUEZ Enoxaparin Sodium 40 mg 12/08/19 21:00 12/17/19 09:30 Lovenox SC 40 mg BID DOMINGUEZ Administration Guaifenesin/Dextromethorphan 15 ml 12/03/19 02:04 12/10/19 04:19 Robitussin Dm PO 15 ml Q4H PRN Administration Cough Hydralazine HCl 20 mg 12/11/19 12:00 12/17/19 06:25 Apresoline SLOW IVP Not Given Q6HR DOMINGUEZ Dextrose/Water 1,000 mls @ 100 mls/hr 12/16/19 10:48 12/16/19 23:29 D5w IV 1,000 mls .Q10H DOMINGUEZ Administration Levothyroxine Sodium 50 mcg 12/06/19 09:00 12/16/19 09:07 Synthroid PO Not Given DAILY DOMINGUEZ Lorazepam 1 mg 12/14/19 14:49 12/16/19 17:37 Ativan SLOW IVP 1 mg Q4H PRN Administration Seizures Megestrol Acetate 400 mg 12/11/19 09:00 12/16/19 09:07 Megace PO Not Given DAILY DOMINGUEZ Methylprednisolone Sodium Succinate 30 mg 12/17/19 09:00 12/17/19 09:30 Solu-Medrol IVP 30 mg Q6H DOMINGUEZ Administration Morphine Sulfate 2 mg 12/15/19 13:00 12/17/19 06:10 Morphine SLOW IVP 2 mg Q2H PRN Administration Pain Pantoprazole Sodium 40 mg 12/04/19 09:00 12/17/19 09:30 Protonix IVP 40 mg DAILY DOMINGUEZ Administration Sodium Chloride 10 ml 12/03/19 17:47 12/15/19 09:30 Normal Saline Pf FS 10 ml PRN PRN Administration RECONSTITUTION - Exam Eye: PERRL, anicteric sclera Heart: RRR, no murmur, no gallops, no rubs, normal peripheral pulses Respiratory: rales (bilateral fine rales. no rhonchi) Gastrointestinal: soft, non-tender, non-distended, normal bowel sounds Extremities: no cyanosis, 1+ LE edema Hosp A/P (1) Acute respiratory failure with hypoxemia Code(s): J96.01 - ACUTE RESPIRATORY FAILURE WITH HYPOXIA Status: Acute (2) Pneumonia due to COVID-19 virus Code(s): U07.1 - COVID-19; J12.89 - OTHER VIRAL PNEUMONIA Status: Acute (3) HTN (hypertension) Code(s): I10 - ESSENTIAL (PRIMARY) HYPERTENSION Status: Chronic (4) Hx of Crohn's disease Code(s): Z87.19 - PERSONAL HISTORY OF OTHER DISEASES OF THE DIGESTIVE SYSTEM Status: Chronic (5) Hypothyroidism Code(s): E03.9 - HYPOTHYROIDISM, UNSPECIFIED Status: Chronic - Plan * COVID pneumonia with acute respiratory failure-No significant progress * He has required BiPAP for the past few days. Due to this and the encephalopathy he has not been able to have any nutritional intake * Continue IV Solumedrol, and Rocephin * HTN- blood pressure is stable * Hypothyroidism- clinically euthyroid * Hypernatremia- will change fluids to D5W * poor overall prognosis. I agree with the Sales And Marketing Professional assessment that he is not likely to survive this illness. Will recah out to family to discuss.
[2019-12-17] MEDS: Megestrol Acetate 800 MG/20 ML UDCUP PO SCH (11:49)
[2019-12-17] MEDS: Levothyroxine Sodium 50 MCG TAB PO SCH (11:49)
[2019-12-17] MEDS: Dextrose 5% in Water 1,000 ML IV SCH (17:10)
--- NOTE | 2019-12-17 17:55 | PRG ---
DATE OF SERVICE: 12/17/2019 SUBJECTIVE: Mr. Hutchison transferred to the [facility]. He is confused and does not know where he is. He could not give me a proper review of systems. OBJECTIVE: VITAL SIGNS: Temperature max 97.6, O2 sats are 100, breathing at 41 times a minute, pulse 93, is on a BiPAP mask. BP 140/90. GENERAL: He appears in some distress respiratory woodward. HEENT: His ocular movements are conjugate. LUNGS: With inspiratory crackles at the bases. No wheezing. HEART: S1, S2 without murmurs. ABDOMEN: Soft, nontender. EXTREMITIES: He is able to move extremities. LABORATORY DATA: White cell count 10.3, hemoglobin 12.8, platelets 69. Creatinine 0.73, sodium 151. 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 He is currently on hydralazine, levothyroxine, Megace, Medrol 30 q.6. ASSESSMENT AND DISCUSSION: Crohn disease, COVID pneumonia third week, diffuse alveolar damage, respiratory distress, BiPAP, on corticosteroids. He has a DNAR status at this point. Job ID: [id number]
--- NOTE | 2019-12-17 18:52 | PDOC.FMACP ---
Advance Care Planning - Problem (1) Acute respiratory failure with hypoxemia Status: Acute Code(s): J96.01 - ACUTE RESPIRATORY FAILURE WITH HYPOXIA (2) Pneumonia due to COVID-19 virus Status: Acute Code(s): U07.1 - COVID-19; J12.89 - OTHER VIRAL PNEUMONIA (3) HTN (hypertension) Status: Chronic Code(s): I10 - ESSENTIAL (PRIMARY) HYPERTENSION (4) Hx of Crohn's disease Status: Chronic Code(s): Z87.19 - PERSONAL HISTORY OF OTHER DISEASES OF THE DIGESTIVE SYSTEM (5) Hypothyroidism Status: Chronic Code(s): E03.9 - HYPOTHYROIDISM, UNSPECIFIED - Note Summary: Advanced Care Planning was discussed. I spoke with the patient's with regards to the patient's medical condition. I discussed that Mr. Hutchison has not made significant improvement over the weekend. The patient's sales porter does not believe he has a good chance at any reasonable recovery and I concur with this prognosis. The patient's seemed a bit distraught about this. She does not know which way to go. We discussed continuing the BiPAP however with this he is not able to get any type of nutrition. I explained that BiPAP is usually considered a temporary measure with hopes that the patient will improve and unfortunately in this situation the patient has not improved. Due to his advanced age and general debility and the COVID infection it is unlikely that he will recover from this illness. We discussed hospice which she says that she was definitely not interested in. We also discussed just keeping him comfortable as it appears right now that he is in discomfort at this time. She says that she is unable to make any type of the decision and I agreed that this is very hard and a lot has been placed on her. She will think about it and discuss it with her family overnight. We will revisit the situation in the morning. Time Spent (mins): 18
[2019-12-17] MEDS: Atorvastatin Calcium 10 MG TAB PO SCH (21:06)
[2019-12-18] MEDS: hydrALAZINE 20 MG/ML VIAL SLOW IVP SCH ×4 (00:16→10:29)
[2019-12-18] MEDS: Morphine 4 MG/ML VIAL SLOW IVP PRN ×4 (01:48→11:06)
[2019-12-18] MEDS: methylPREDNISolone Sod Succ 40 MG VIAL IVP SCH ×2 (02:12→07:48)
[2019-12-18 03:32] LABS: Anion Gap 20 mmol/L (10-20); BUN (Urea Nitrogen) 31 mg/dL (8.4-25.7); Calc. Creatinine Clearance 96 mL/min (70-130); Calcium 8.5 mg/dL (7.8-10.44); Carbon Dioxide 18 mmol/L (23-31); Chloride 119 mmol/L (98-107); Estimated GFR-MDRD Greater than 90; Glucose 135 mg/dL (83-110); Potassium 5.1 mmol/L (3.5-5.1); Sodium 152 mmol/L (136-145)
[2019-12-18] MEDS: Dextrose 5% in Water 1,000 ML IV SCH ×2 (03:34→10:29)
[2019-12-18] MEDS: Morphine 2 MG/ML VIAL SLOW IVP PRN (04:58)
[2019-12-18] MEDS: Levothyroxine Sodium 50 MCG TAB PO SCH (07:14)
[2019-12-18] MEDS: Megestrol Acetate 800 MG/20 ML UDCUP PO SCH (07:15)
[2019-12-18] MEDS: Enoxaparin Sodium 40 MG/0.4 ML SYRINGE SC SCH (07:48)
[2019-12-18] MEDS: Pantoprazole 40 MG VIAL IVP SCH (07:49)
[2019-12-18 08:04] VITALS: TEMP 97.2
[2019-12-18] MEDS ORDERED: Morphine 4 MG/ML VIAL SLOW IVP PRN ×2 (08:30→10:46)
[2019-12-18] MEDS ORDERED: Morphine 2 MG/ML VIAL SLOW IVP PRN (08:30)
[2019-12-18] MEDS: Lorazepam 2 MG/ML VIAL SLOW IVP PRN (09:19)
--- NOTE | 2019-12-18 09:21 | PRG ---
DATE OF SERVICE: 12/18/2019 SUBJECTIVE: The patient remains on BiPAP with 100% oxygen. There has been absolutely no improvement in his condition. OBJECTIVE: VITAL SIGNS: On exam, temperature 97.2, pulse 86, blood pressure 104/60, and O2 saturation running in the low 90s. HEENT: Unremarkable. NECK: No JVD. LUNGS: Crackles. CARDIAC: S1 and S2. Regular. LABORATORY DATA: Sodium 152, potassium 5.1, chloride 119, CO2 of 18, BUN 31, creatinine 0.6, and glucose 135. ASSESSMENT: 1. COVID-19 pneumonia. 2. Acute respiratory failure, requiring noninvasive ventilation. 3. The patient is currently extremely hypernatremic even while getting D5W. PLAN: 1. Continue D5W infusion. 2. Continue BiPAP. 3. His prognosis for recovery is close to zero. Job ID: [id number]
--- NOTE | 2019-12-18 10:27 | PDOC.HOSPP ---
- Subjective Encounter Date: 12/18/19 Encounter Time: 10:26 Subjective: Mr. Hutchison was seen today in follow-up of COVID pneumonia and respiratory failure. He has not improved overnight, and in fact has become hypotensive, and remains encephalopathic. His and daughters are at the bedside. - Objective Vital Signs & Weight: Vital Signs (12 hours) Temp Pulse Resp Pulse Ox 12/18/19 08:03 87 29 H 92 L 12/18/19 08:00 97.2 F L 98 12/18/19 04:00 97.4 F L 12/18/19 02:39 83 23 H 94 L 12/18/19 00:00 97.0 F L 12/17/19 22:41 89 31 H 100 Weight Admit Weight 199 lb 3.2 oz Weight 203 lb 1.6 oz Most Recent Monitor Data Heart Rate from ECG 77 NIBP 78/53 NIBP BP-Mean 61 Respiration from ECG 18 SpO2 98 I&O: 12/17/19 12/18/19 12/19/19 06:59 06:59 06:59 Intake Total 2300 2420 Balance 2300 2420 Result Diagrams: 12/17/19 08:44 12/18/19 03:02 Hospitalist ROS - Medication Medications: Active Medications Generic Name Dose Route Start Last Admin Trade Name Freq PRN Reason Stop Dose Admin Atorvastatin Calcium 10 mg 12/05/19 21:00 12/17/19 21:06 Lipitor PO Not Given HS DOMINGUEZ Enoxaparin Sodium 40 mg 12/08/19 21:00 12/18/19 07:48 Lovenox SC 40 mg BID DOMINGUEZ Administration Guaifenesin/Dextromethorphan 15 ml 12/03/19 02:04 12/10/19 04:19 Robitussin Dm PO 15 ml Q4H PRN Administration Cough Hydralazine HCl 20 mg 12/11/19 12:00 12/18/19 05:53 Apresoline SLOW IVP Not Given Q6HR DOMINGUEZ Dextrose/Water 1,000 mls @ 100 mls/hr 12/16/19 10:48 12/18/19 03:34 D5w IV 1,000 mls .Q10H DOMINGUEZ Administration Levothyroxine Sodium 50 mcg 12/06/19 09:00 12/18/19 07:14 Synthroid PO Not Given DAILY DOMINGUEZ Lorazepam 1 mg 12/14/19 14:49 12/18/19 09:19 Ativan SLOW IVP 1 mg Q4H PRN Administration Seizures Megestrol Acetate 400 mg 12/11/19 09:00 12/18/19 07:15 Megace PO Not Given DAILY DOMINGUEZ Methylprednisolone Sodium Succinate 30 mg 12/17/19 09:00 12/18/19 07:48 Solu-Medrol IVP Not Given Q6H DOMINGUEZ Morphine Sulfate 4 mg 12/18/19 08:30 12/18/19 09:19 Morphine SLOW IVP 4 mg Q1H PRN Administration Moderate to Severe Pain (6-10) Pantoprazole Sodium 40 mg 12/04/19 09:00 12/18/19 07:49 Protonix IVP 40 mg DAILY DOMINGUEZ Administration Sodium Chloride 10 ml 12/03/19 17:47 12/15/19 09:30 Normal Saline Pf FS 10 ml PRN PRN Administration RECONSTITUTION - Exam Eye: PERRL Heart: RRR, no murmur, no gallops, no rubs, normal peripheral pulses Respiratory: rales (at both bases) Gastrointestinal: soft, non-tender, non-distended, normal bowel sounds, no palpable masses, no hepatomegaly Extremities: 1+ LE edema Hosp A/P (1) Acute respiratory failure with hypoxemia Code(s): J96.01 - ACUTE RESPIRATORY FAILURE WITH HYPOXIA Status: Acute (2) Pneumonia due to COVID-19 virus Code(s): U07.1 - COVID-19; J12.89 - OTHER VIRAL PNEUMONIA Status: Acute (3) HTN (hypertension) Code(s): I10 - ESSENTIAL (PRIMARY) HYPERTENSION Status: Chronic (4) Hx of Crohn's disease Code(s): Z87.19 - PERSONAL HISTORY OF OTHER DISEASES OF THE DIGESTIVE SYSTEM Status: Chronic (5) Hypothyroidism Code(s): E03.9 - HYPOTHYROIDISM, UNSPECIFIED Status: Chronic - Plan * COVID pneumonia with acute respiratory failure-No significant improvement overnight * I spoke with the patient's and children at the bedside. Unfortunately he is not likely to survive. They are trying to decide what to do, whether to continue with BiPAP or remove it. * Continue IV Solumedrol, and Rocephin * HTN-blood pressure has begun to drop * Hypothyroidism- clinically euthyroid * Hypernatremia- will change fluids to D5W * poor overall prognosis. I agree with the Customer Consulting Manager assessment that he is not likely to survive this illness. Will recah out to family to discuss.
[2019-12-18] MEDS ORDERED: Lorazepam 2 MG/ML VIAL SLOW IVP PRN (10:46)
--- NOTE | 2019-12-18 14:05 | PDOC.PALPN ---
Palliative Progress Note - Subjective Continues with BiPAP at 100% oxygen, labored respirations. Does not open eyes during assessment, no participation in assessment. - Objective Vital Signs: Vital Signs - Most Recent Temp Pulse Resp BP Pulse Ox 97.2 F L 87 29 H 105/62 92 L 12/18/19 08:00 12/18/19 10:29 12/18/19 08:03 12/16/19 23:28 12/18/19 08:03 - Physical Exam Constitutional: encephalitic, ill appearing, mild distress HEENT: moist MMs, sclera anicteric Respiratory: diminished lung sound Deviation from normal: labored respirations, Adventicious bilaterally Cardiovascular: RRR Gastrointestinal: soft, non-tender Genitourinary: incontinent Musculoskeletal: no cyanosis, pulses present, diffuse muscle atrophy Neurology: no focal deficits Skin: cap refill <2 seconds, no lesions, no rash Deviation from normal: encephalopathic, minimally responsive with significant stimuli, restless - Assessment (1) Palliative care encounter Code(s): Z51.5 - ENCOUNTER FOR PALLIATIVE CARE Status: Acute (2) HTN (hypertension) Code(s): I10 - ESSENTIAL (PRIMARY) HYPERTENSION Status: Chronic (3) Hx of Crohn's disease Code(s): Z87.19 - PERSONAL HISTORY OF OTHER DISEASES OF THE DIGESTIVE SYSTEM Status: Chronic (4) Pneumonia due to COVID-19 virus Code(s): U07.1 - COVID-19; J12.89 - OTHER VIRAL PNEUMONIA Status: Acute (5) Sepsis Code(s): A41.9 - SEPSIS, UNSPECIFIED ORGANISM Status: Acute - Plan Plan: Family called to bedside. Dr Dickson discussed at length disease process and poor meaningful recovery. Family elected to have all 5 children come and withdraw supportive care and transition to comfort. Spiritual care notified and present for family support. Emotional support and therapeutic listening to process anticipatory grief related to expected of Mr Rodas passing with removal of BiPAP. [35] minutes spent on this encounter with >50% of the time in counseling and coordination of care. - ROS Non Response: due to mental status
--- NOTE | 2019-12-19 21:27 | DIS ---
DATE OF ADMISSION: 12/02/2019 DATE OF DISCHARGE: 12/18/2019 SUMMARY: DATE OF : 12/18/2019. DIAGNOSES: 1. Acute respiratory failure with hypoxemia. 2. COVID-19 pneumonia. 3. History of Crohn's disease. 4. Hypothyroidism. CODE STATUS: DNR. ALLERGIES: NO KNOWN DRUG ALLERGIES. IMAGING DONE DURING HOSPITAL STAY: The patient had a CT scan of the brain showing chronic findings and no intracranial hemorrhage. The patient had a CT angiogram of the chest and there was no evidence of pulmonary thromboembolism, but diffuse bilateral ground-glass and interstitial opacities compatible with a viral infection. There was evidence of cardiomegaly. The patient also had an echocardiogram showing an ejection fraction estimated at 60% to 65%. There was grade 1/3 diastolic dysfunction. A calcified aortic valve with decreased cusp opening. HOSPITAL COURSE: Mr. Hutchison is an 89-year-old gentleman, who was admitted to the hospital on 12/03/2019. At that time, he was found to be altered and lethargic. He apparently had recently been treated at [facility], there for COVID-19 and was sent home on the after a few days of hospitalization. He became more weak and less active and then, developed a fever. They brought him to our facility, where he was admitted. He was evaluated by Pulmonology. He was placed on high-dose steroids and it was unclear the exact start date of his symptoms and due to his encephalopathy and generalized weakness, the decision was made not to intubate the patient and he was placed on BiPAP. He remained on BiPAP for the next several days. Unfortunately, he did not make much progress and was unable to be weaned from the BiPAP. Whenever an attempt was made to remove him from BiPAP, he desaturated into the 70s within seconds. Also during this time, he remained in encephalopathic. The Palliative Care team was consulted due to the patient's poor prognosis. The family was initially hesitant to make any type of decision and we watched him in the hospital on BiPAP a few more days. Unfortunately, he still did not make any significant improvement and in fact, he became hypotensive and less responsive. This was communicated to the as well as the patient's children. They were allowed to come visit him due to concerns for rapid deterioration and when the came to see him with the family, she made a decision to remove BiPAP. He was placed on comfort medications including morphine and Ativan and shortly thereafter and as a result of complications of COVID-19 infection. Job ID: [id number]
== END 2019-12-18 13:40 | disposition expired | DRG 871 ==
LOC: ERS 21:05 → 2SW 23:50 → IMCU/EMU 12-11 10:08
PROVIDERS: ADMIT Internal Medicine; ATTEND Internal Medicine
PROC: 8E0ZXY6 Isolation (ICD-10-PCS; principal; 2019-12-02)
PROC: XW13325 Transfusion of Convalescent Plasma (Nonautologous) into Peripheral Vein, Percutaneous Approach, New Technology Group 5 (ICD-10-PCS; 2019-12-12)
PROC: 5A09557 Assistance with Respiratory Ventilation, Greater than 96 Consecutive Hours, Continuous Positive Airway Pressure (ICD-10-PCS; 2019-12-12)
DX: A41.89 Other specified sepsis (principal); U07.1 COVID-19; J12.89 Other viral pneumonia; J96.01 Acute respiratory failure with hypoxia; G93.41 Metabolic encephalopathy; K50.90 Crohn's disease, unspecified, without complications; E87.0 Hyperosmolality and hypernatremia; Z51.5 Encounter for palliative care; Z66 Do not resuscitate; E03.9 Hypothyroidism, unspecified; R40.2362 Coma scale, best motor response, obeys commands, at arrival to emergency department; R40.2142 Coma scale, eyes open, spontaneous, at arrival to emergency department; R40.2242 Coma scale, best verbal response, confused conversation, at arrival to emergency department; E78.5 Hyperlipidemia, unspecified; E78.00 Pure hypercholesterolemia, unspecified; I10 Essential (primary) hypertension; I95.9 Hypotension, unspecified; Z87.891 Personal history of nicotine dependence; Z79.899 Other long term (current) drug therapy
CPT/HCPCS: 36415; 36416; 36430; 36600; 51701; 70450; 71045; 71275; 80048; 80053; 80306; 80307; 81003; 81015; 82553; 82805; 83605; 83615; 83690; 83735; 83880; 84145; 84484; 85007; 85025; 85027; 85379; 85652; 86140; 86850; 86900; 86901; 87040; 87086; 93005; 93306; 94660; 96365; 96367; C9113; J0360; J0456; J0692; J0696; J1100; J1650; J2060; J2270; J2920; J2930; J3370; J3480; J3490; J7050; P9017; Q9967